=== PATIENT | female | born 1960 | race Caucasian/White ===

== ENCOUNTER → 2017-11-28 10:39 | Outpatient (CLI) | payer MEDICARE, OTHER, SELFPAY ==
[2017-11-28 14:30] LABS: Adenovirus F 40/41, stool Not Detected (NotDetected); Astrovirus Not Detected (NotDetected); Campylobacter Not Detected (NotDetected); Clostridium Difficile A/B, PCR Not Detected (NotDetected); Cryptosporidium Not Detected (NotDetected); Cyclospora Cayetanesis Not Detected (NotDetected); Entamoeba histolytica Not Detected (NotDetected); Enteroaggregative E coli Not Detected (NotDetected); Enteropathogenic E coli Not Detected (NotDetected); Enterotoxigenic E coli Not Detected (NotDetected); Giardia lamblia Not Detected (NotDetected); Norovirus Not Detected (NotDetected); Plesimonas Shigalloides, PCR Not Detected (NotDetected); Rotavirus A Not Detected (NotDetected); Salmonella, PCR Not Detected (NotDetected); Sapovirus Not Detected (NotDetected); Shiga-like toxin E coli Not Detected (NotDetected); Shigella Enterovasive E coli Not Detected (NotDetected); Vibrio Cholerae Not Detected (NotDetected); Vibrio, PCR Not Detected (NotDetected); Yersinia Entercolitica, PCR Not Detected (NotDetected)
== END ==
PROVIDERS: PCP Internal Medicine; Visit Provider Surgery
DX: R19.7 Diarrhea, unspecified (principal)
CPT/HCPCS: 87507

== ENCOUNTER → 2017-12-20 10:18 | Outpatient (CLI) | payer MEDICARE, OTHER, SELFPAY ==
--- NOTE | 2017-12-20 10:27 | CA_ITS ---
PROCEDURE: 2-D M-mode and color Doppler study INDICATIONS FOR THE TEST: Chest pain COPDX Heart Murmur Tobacco SmokingX Palpitations Fatigue Syncope Edema HypertensionXDiabetes Mellitus Rheumatic Fever SOB DOEXObesityXHyperlipidemia Family History HD Additional History ABN EKG TDS PLAX PSAX OBESITY PATIENT INFORMATION HEIGHT: 66 WEIGHT:276 GENDER: Female B/P:124/82 2-D/M-MODE INTERPRETATION: 2-D MEASUREMENTS OBSERVED VALUES IN CMS Right Ventricular Dimension (RVDd) 2.3 Interventricular Septum (Thickness)(IVsd) 1.4 Left Ventricular Internal Dimensions(LVIDd) 3.6 Left Ventricular Posterior Wall (Thickness)(LVPWd) 1.4 Aortic Root 3.5 Aortic Cusp Separation 1.9 Left Atrial Dimensions (LAD) 2.7 2D 1. Left atrium is mildly enlarged, left ventricle is normal size, there is mild concentric left ventricular hypertrophy, visually estimated ejection fraction 55% with no obvious regional wall motion abnormality. 2. The right atrium and right ventricle are normal size and contractility. 3. The aortic valve is minimally thickened and fibrosed. 4. The mitral and tricuspid valve leaflets are minimally thickened. 5. The pulmonic valve is poorly visualized. 6. No significant pericardial effusion noted. DOPPLER INTERROGATION: Doppler interrogation of the aortic, mitral and tricuspid valvular presence of mild aortic, mild mitral and tricuspid regurgitation, tricuspid regurgitant jet velocity is insufficient for calculation of the right ventricular systolic pressure, grade 1 diastolic dysfunction seen without tissue Doppler evidence of raised left atrial pressure. CONCLUSION: 1. Mildly enlarged left atrium, normal left ventricular size, mild concentric left ventricular hypertrophy, visually estimated ejection fraction of 55% with no obvious regional wall motion abnormality, grade 1 diastolic dysfunction seen without tissue Doppler evidence of raised left atrial pressure. 2. Mild aortic, mild mitral and tricuspid regurgitation. 3. No significant pericardial effusion noted.
== END ==
PROVIDERS: PCP Internal Medicine; Visit Provider Internal Medicine
DX: R94.31 Abnormal electrocardiogram [ECG] [EKG] (principal); J44.9 Chronic obstructive pulmonary disease, unspecified; I10 Essential (primary) hypertension
CPT/HCPCS: 93306

== ENCOUNTER → 2017-12-23 11:03 | Outpatient (CLI) | payer MEDICARE, OTHER, SELFPAY ==
--- NOTE | 2017-12-23 | FL_ITS ---
FL barium enema w air contrast CLINICAL INDICATION: Chronic diarrhea, ITS.REASON: ILEOCEAL VALVE LESIONS ORDERING PHYSICIAN: Cayden Causey MD PATIENT AGE: 57 years Fluoroscopy time: 3 minutes and 2 seconds COMPARISON: None FINDINGS: Benefits Counselor exam shows surgical clips in right upper quadrant. The colon is visualized from rectum to cecum. The terminal ileum was not demonstrated. There is only minimal amount reflux of contrast into the terminal ileum. Diverticulosis involves the descending and sigmoid colon. No annular constricting lesions are evident. No fixed polypoid filling defects are apparent. IMPRESSION: 1. Diverticulosis of the descending and sigmoid colon. 2. Otherwise negative air-contrast barium enema
== END ==
PROVIDERS: PCP Internal Medicine; Visit Provider Surgery
DX: D37.4 Neoplasm of uncertain behavior of colon (principal); D12.0 Benign neoplasm of cecum
CPT/HCPCS: 74280

== ENCOUNTER → 2017-12-31 09:53 | Outpatient (CLI) | payer MEDICARE, OTHER, SELFPAY ==
--- NOTE | 2017-12-31 10:14 | XR_ITS ---
XR KUB CLINICAL INDICATION: Abdominal pain ITS.REASON: RO RESIDUAL BARIUM FROM BARIUM ENEMA PRIOR TO CT AND SBFT ORDERING PHYSICIAN: Cayden Causey MD PATIENT AGE: 57 years COMPARISON: 12/23/2017 FINDINGS: There is a small amount residual contrast within a diverticulum in the left pelvic region. No other residual contrast present. Unremarkable bowel gas pattern. IMPRESSION: Small amount of residual barium within a diverticulum in the left lower quadrant
--- NOTE | 2017-12-31 10:42 | CT_ITS ---
CT abdomen pelvis w con CLINICAL INDICATION: Abdominal pain, ileocecal valve lesions, diarrhea ITS.REASON: abd pain ORDERING PHYSICIAN: Cayden Causey MD PATIENT AGE: 57 years COMPARISON: None TECHNIQUE: Axial images obtained with sagittal and coronal reformats. PROCEDURE: Oral Contrast: Gastroview IV Contrast: 75 mL's of Isovue-370. FINDINGS: Minimal atelectatic or fibrotic changes are present in the lung bases There is mild hepatomegaly with the liver measuring up to 28 cm in maximum transverse dimension. No focal liver lesion is evident. No intrahepatic ductal dilatation. There has been a prior cholecystectomy. The spleen, adrenal glands, and pancreas are unremarkable. There is a duodenal diverticulum projecting medially off of the descending portion of the duodenum. No renal mass or hydronephrosis. No obstructing ureteral calculus. No intestinal obstruction or free air. There has been a prior appendectomy. Multiple diverticula are present in the ascending and sigmoid colon. No evidence of diverticulitis. Artifact is present from barium within a diverticulum in the sigmoid colon. There is mild thickening of the terminal ileum with a fat halo sign of the terminal ileum with infiltration of the submucosal fat of the terminal ileum. This may be seen with inflammatory bowel disease. No abscess or bowel obstruction. There is lobular contour of the left side of the uterus possibly related to fibroid involvement. There are scattered small lymph nodes of the mesentery's nonspecific No acute bony anomalies. IMPRESSION: 1. Mild thickening of the terminal ileum with infiltration of the submucosal fat. This may be seen with inflammatory bowel disease/Crohn's disease. 2. Diverticulosis of the sigmoid colon. 3. Lobular contour of the fundus of the uterus projecting anteriorly and toward the left fibroid involvement 4. Mild hepatomegaly
--- NOTE | 2017-12-31 12:55 | HMH.ITSHM ---
LOSARTIN,LEVOTHYROXIN,SPIRIVA
== END ==
PROVIDERS: PCP Internal Medicine; Visit Provider Surgery
DX: D37.4 Neoplasm of uncertain behavior of colon (principal); D12.0 Benign neoplasm of cecum
CPT/HCPCS: 74018; 74177; Q9966

== ENCOUNTER → 2017-12-31 12:12 | Outpatient (CLI) | payer MEDICARE, OTHER, SELFPAY ==
[2017-12-31 12:33] LABS: Blood Urea Nitrogen 15 mg/dL (7-18); Creatinine,Serum 1.21 mg/dL (0.55-1.02); Estimated Glomerular Filt Rate 46 ml/min (>60); GFR (African American) 56 ML/MIN (>60)
== END ==
PROVIDERS: Visit Provider Surgery
DX: D37.4 Neoplasm of uncertain behavior of colon (principal); D12.0 Benign neoplasm of cecum
CPT/HCPCS: 36415; 74018; 74177; 82565; 84520; Q9966

== ENCOUNTER → 2018-01-02 08:20 | Outpatient (CLI) | payer MEDICARE, OTHER, SELFPAY ==
--- NOTE | 2018-01-02 08:22 | FL_ITS ---
FL small bowel follow through CLINICAL INDICATION: Abdominal pain, diarrhea, explosive diarrhea, ileocecal lesions ITS.REASON: abd pain ORDERING PHYSICIAN: Cayden Causey MD PATIENT AGE: 57 years COMPARISON: CT scan of 12/31/2017 Fluoroscopy time: 3 minutes and 31 seconds FINDINGS: Environmental Protection Inspector exam shows surgical clip in right upper quadrant. Contrast was followed throughout the small bowel with spot views and KUB. There is no evidence of small bowel obstruction. No masses are evident. There is mild narrowing of the terminal ileum with haziness of the mucosal outline similar to the abnormality noted on the CT scan consistent with inflammatory bowel disease. No fistulas are evident. IMPRESSION: Mild haziness of the lumen of the terminal ileum which may reflect findings of inflammatory bowel disease.
== END ==
PROVIDERS: PCP Internal Medicine; Visit Provider Surgery
DX: D37.4 Neoplasm of uncertain behavior of colon (principal); D12.0 Benign neoplasm of cecum
CPT/HCPCS: 74250

== ENCOUNTER → 2018-01-13 08:07 | Outpatient (POV) | payer MEDICARE, OTHER, SELFPAY | PROVIDERS: Visit Provider Nurse Practitioner Acute Care | DX: Z00.00 Encounter for general adult medical examination without abnormal findings (principal) ==

== ENCOUNTER → 2018-05-26 13:43 | Outpatient (POV) | payer MEDICARE, OTHER, SELFPAY ==
[2018-05-28 08:37] LABS: Iron 59 ug/dL (27-159); Iron Saturation 14 % (15-55); UIBC 369 ug/dL (131-425)
[2018-05-29 06:49] LABS: Vitamin B12 387 pg/mL (232-1245)
== END ==
PROVIDERS: Visit Provider Nurse Practitioner Acute Care
DX: D51.9 Vitamin B12 deficiency anemia, unspecified (principal)
CPT/HCPCS: 36415; 82607; 83540; 83550

== ENCOUNTER → 2019-08-17 11:35 | Outpatient (CLI) | payer MEDICARE, BC, SELFPAY ==
--- NOTE | 2019-08-17 11:45 | XR_ITS ---
PROCEDURE: XR SHOULDER RT MIN 2V CLINICAL INDICATION: RT SHOULDER PAIN COMPARISON: No exams were available for comparison FINDINGS: There are mild osteoarthritic changes of the acromioclavicular joint. No fracture or dislocation. Small subarticular cyst involves the base of the greater tuberosity of the humerus. No lytic or blastic change IMPRESSION: Mild degenerative changes otherwise negative Dictated by: Parvez Collins MD 08/17/2019 12:33 Electronically signed by Parvez Collins MD in [place] 08/17/2019 12:33
== END ==
PROVIDERS: PCP Internal Medicine; Visit Provider Internal Medicine
DX: M25.511 Pain in right shoulder (principal)
CPT/HCPCS: 73030

== ENCOUNTER → 2021-07-17 13:51 | Outpatient (CLI) | payer MEDICARE, BC, SELFPAY ==
[2021-07-17 15:07] LABS: Hemoglobin A1C 8.3 % (4.0-6.0)
[2021-07-17 16:09] LABS: Thyroid Stimulating Hormone 9.82 uIU/mL (0.465-4.68)
== END ==
PROVIDERS: Visit Provider Internal Medicine
DX: R73.9 Hyperglycemia, unspecified (principal); E05.90 Thyrotoxicosis, unspecified without thyrotoxic crisis or storm
CPT/HCPCS: 83036; 84443

== ENCOUNTER → 2021-10-10 14:31 | Outpatient (CLI) | payer MEDICARE, BC, SELFPAY ==
[2021-10-10 14:49] LABS: Basophils % 0.5 % (0.1-2.0); Eosinophils # 0.1 K/mm3 (0.0-0.4); Eosinophils % 1.1 % (0.1-12.0); Hematocrit 45.4 % (37.0-47.0); Hemoglobin 15.2 g/dL (12.2-16.2); Lymphocytes # 1.1 K/mm3 (0.7-4.5); Lymphocytes % 14.9 % (10-50); Mean Corpuscular HGB Conc 33.6 g/dL (31.8-35.4); Mean Corpuscular Hemoglobin 29.8 pg (27.0-31.2); Mean Corpuscular Volume 88.8 fl (81-99); Mean Platelet Volume 8.3 fl (7.4-10.4); Monocytes # 0.4 K/mm3 (0.1-1.0); Monocytes % 5.8 % (1.7-9.3); Neutrophils # 5.5 K/mm3 (1.8-7.8); Neutrophils % 77.6 % (37.0-80.0); Platelet Count 339 K/mm3 (142-424); Red Blood Count 5.11 M/mm3 (4.20-5.40); Red Cell Distribution Width 14.4 % (11.5-17.5); White Blood Count 7.1 K/mm3 (4.8-10.8)
[2021-10-10 15:32] LABS: Alanine Aminotransferase 53 U/L (12-78); Albumin Level 4.2 g/dl (3.5-5.0); Albumin/Globulin Ratio 1.4 (1.1-1.8); Alkaline Phosphatase 86 U/L (38-126); Anion Gap 13.1 mEq/L (5-15); Aspartate Amino Transferase 63 U/L (14-36); Bilirubin,Total 0.7 mg/dl (0.2-1.3); Blood Urea Nitrogen 14 mg/dl (7-17); Calcium 9.4 mg/dl (8.4-10.2); Carbon Dioxide 30 mmol/L (22.0-30.0); Chloride 91 mmol/L (98-107); Estimated Glomerular Filt Rate 57 ml/min (>60); GFR (African American) 68 ML/MIN (>60); Glucose 135 mg/dl (74-100); Potassium 4.1 mmoL/L (3.5-5.1); Sodium 130 mmol/L (136-145); Total Protein,Serum 7.2 g/dl (6.3-8.2)
[2021-10-10 21:40] LABS: Hemoglobin A1C 7.2 % (4.0-6.0)
[2021-10-11 00:09] LABS: Chol/HDL Ratio 9.6 (1-3.5); Cholesterol 269 mg/dl (140-200); HDL Cholesterol 28 mg/dl (40-60); Triglycerides 300 mg/dl (30-150); VLDL Cholesterol 60 mg/dL (0-40)
[2021-10-11 00:20] LABS: Direct LDL Cholesterol 166.81 mg/dL (100-129)
== END ==
PROVIDERS: Visit Provider Internal Medicine
DX: E11.9 Type 2 diabetes mellitus without complications (principal); E78.5 Hyperlipidemia, unspecified; J44.9 Chronic obstructive pulmonary disease, unspecified; J44.1 Chronic obstructive pulmonary disease with (acute) exacerbation
CPT/HCPCS: 80053; 80061; 82043; 83036; 85025

== ENCOUNTER → 2022-04-16 13:09 | Outpatient (CLI) | payer MEDICARE, BC, SELFPAY ==
[2022-04-16 14:59] LABS: Chloride 95 mmol/L (98-107)
[2022-04-16 15:00] LABS: Potassium 4.8 mmoL/L (3.5-5.1); Sodium 135 mmol/L (136-145)
[2022-04-16 15:02] LABS: Alanine Aminotransferase 20 U/L (12-78); Alkaline Phosphatase 85 U/L (38-126); Aspartate Amino Transferase 28 U/L (14-36); Bilirubin,Total 0.6 mg/dl (0.2-1.3); Blood Urea Nitrogen 18 mg/dl (7-17); Estimated Glomerular Filt Rate 57 ml/min (>60); GFR (African American) 68 ML/MIN (>60)
[2022-04-16 15:03] LABS: Albumin Level 4.1 g/dl (3.5-5.0); Albumin/Globulin Ratio 1.4 (1.1-1.8); Anion Gap 12.8 mEq/L (5-15); Calcium 10.2 mg/dl (8.4-10.2); Carbon Dioxide 32 mmol/L (22.0-30.0); Chol/HDL Ratio 9.6 (1-3.5); Cholesterol 297 mg/dl (140-200); Globulin 2.9 g/dL (1.3-3.2); Glucose 147 mg/dl (74-100); HDL Cholesterol 31 mg/dl (40-60)
[2022-04-16 15:14] LABS: Direct LDL Cholesterol 133.58 mg/dL (100-129)
[2022-04-16 15:17] LABS: Triglycerides 422 mg/dl (30-150)
[2022-04-16 15:34] LABS: Thyroid Stimulating Hormone 1.23 uIU/mL (0.465-4.68)
== END ==
PROVIDERS: PCP Internal Medicine; Visit Provider Internal Medicine
DX: E03.9 Hypothyroidism, unspecified (principal); I10 Essential (primary) hypertension; E11.9 Type 2 diabetes mellitus without complications; E78.5 Hyperlipidemia, unspecified; J44.9 Chronic obstructive pulmonary disease, unspecified
CPT/HCPCS: 80053; 80061; 83036; 84443

== ENCOUNTER → 2022-09-25 13:28 | Outpatient (CLI) | payer MEDICARE, BC, SELFPAY ==
[2022-09-25 14:29] LABS: Basophils # 0.1 K/mm3 (0-0.2); Basophils % 0.9 % (0.1-2.0); Eosinophils # 0.3 K/mm3 (0.0-0.4); Eosinophils % 3.1 % (0.1-12.0); Hematocrit 46.1 % (37.0-47.0); Hemoglobin 14.8 g/dL (12.2-16.2); Lymphocytes # 1.8 K/mm3 (0.7-4.5); Lymphocytes % 19.5 % (10-50); Mean Corpuscular Volume 90.5 fl (81-99); Mean Platelet Volume 9.2 fl (7.4-10.4); Monocytes # 0.4 K/mm3 (0.1-1.0); Neutrophils # 6.7 K/mm3 (1.8-7.8); Neutrophils % 72.5 % (37.0-80.0); Platelet Count 449 K/mm3 (142-424); Red Cell Distribution Width 15.8 % (11.5-17.5); White Blood Count 9.3 K/mm3 (4.8-10.8)
[2022-09-25 15:36] LABS: Alanine Aminotransferase 27 U/L (12-78); Albumin Level 4.4 g/dl (3.5-5.0); Albumin/Globulin Ratio 1.7 (1.1-1.8); Alkaline Phosphatase 77 U/L (38-126); Anion Gap 13.5 mEq/L (5-15); Aspartate Amino Transferase 36 U/L (14-36); Bilirubin,Total 0.5 mg/dl (0.2-1.3); Blood Urea Nitrogen 18 mg/dl (7-17); Calcium 10.4 mg/dl (8.4-10.2); Carbon Dioxide 32 mmol/L (22.0-30.0); Chloride 98 mmol/L (98-107); Chol/HDL Ratio 7.5 (1-3.5); Cholesterol 263 mg/dl (140-200); Estimated Glomerular Filt Rate 42 ml/min (>60); GFR (African American) 50 ML/MIN (>60); Globulin 2.6 g/dL (1.3-3.2); Glucose 132 mg/dl (74-100); HDL Cholesterol 35 mg/dl (40-60); Potassium 5.5 mmoL/L (3.5-5.1); Sodium 138 mmol/L (136-145); Triglycerides 240 mg/dl (30-150); VLDL Cholesterol 48 mg/dL (0-40)
[2022-09-25 15:55] LABS: Direct LDL Cholesterol 164.27 mg/dL (100-129)
[2022-09-25 16:14] LABS: Hemoglobin A1C 7.1 % (4.0-6.0)
== END ==
PROVIDERS: PCP Internal Medicine; Visit Provider Internal Medicine
DX: E11.9 Type 2 diabetes mellitus without complications (principal); I10 Essential (primary) hypertension; E78.5 Hyperlipidemia, unspecified; J44.9 Chronic obstructive pulmonary disease, unspecified
CPT/HCPCS: 80053; 80061; 83036; 85025

== ENCOUNTER → 2022-12-27 13:41 | Outpatient (CLI) | payer MEDICARE, BC, SELFPAY ==
[2022-12-27 14:26] LABS: Basophils # 0.1 K/mm3 (0-0.2); Basophils % 0.9 % (0.1-2.0); Eosinophils # 0.2 K/mm3 (0.0-0.4); Hematocrit 45.7 % (37.0-47.0); Hemoglobin 14.3 g/dL (12.2-16.2); Lymphocytes # 1.7 K/mm3 (0.7-4.5); Lymphocytes % 17.7 % (10-50); Mean Corpuscular HGB Conc 31.4 g/dL (31.8-35.4); Mean Corpuscular Hemoglobin 28.7 pg (27.0-31.2); Mean Corpuscular Volume 91.5 fl (81-99); Mean Platelet Volume 8.2 fl (7.4-10.4); Monocytes # 0.4 K/mm3 (0.1-1.0); Monocytes % 3.7 % (1.7-9.3); Neutrophils # 7.5 K/mm3 (1.8-7.8); Neutrophils % 75.8 % (37.0-80.0); Platelet Count 399 K/mm3 (142-424); Red Blood Count 4.99 M/mm3 (4.20-5.40); Red Cell Distribution Width 15.3 % (11.5-17.5); White Blood Count 9.8 K/mm3 (4.8-10.8)
== END ==
PROVIDERS: PCP Internal Medicine; Visit Provider Internal Medicine Pulmonary Disease
DX: J45.909 Unspecified asthma, uncomplicated (principal)
CPT/HCPCS: 36415; 82785; 85025; 86003

== ENCOUNTER → 2023-01-07 10:44 | Outpatient (CLI) | payer MEDICARE, BC, SELFPAY ==
[2023-01-10 17:51] LABS: D001-IgE D pteronyssinus 0.12 kU/L (Class 0/I); E001-IgE Cat Dander <0.10 kU/L (Class 0); E005-IgE Dog Dander <0.10 kU/L (Class 0); E072-IgE Mouse Urine <0.10 kU/L (Class 0); G002-IgE Bermuda Grass <0.10 kU/L (Class 0); G006-IgE Timothy Grass <0.10 kU/L (Class 0); Immunoglobulin E, Total 83 IU/mL (6-495); M001-IgE Penicillium chrysogen <0.10 kU/L (Class 0); M002-IgE Cladosporium herbarum <0.10 kU/L (Class 0); M003-IgE Aspergillus fumigatus <0.10 kU/L (Class 0); M006-IgE Alternaria alternata <0.10 kU/L (Class 0); T001-IgE Maple/Box Elder <0.10 kU/L (Class 0); T003-IgE Common Silver Birch <0.10 kU/L (Class 0); T006-IgE Cedar, Mountain <0.10 kU/L (Class 0); T007-IgE Oak, White <0.10 kU/L (Class 0); T008-IgE Elm, American <0.10 kU/L (Class 0); T010-IgE Walnut <0.10 kU/L (Class 0); T011-IgE Maple Leaf Sycamore <0.10 kU/L (Class 0); T014-IgE Cottonwood <0.10 kU/L (Class 0); T015-IgE Ash, White <0.10 kU/L (Class 0); T022-IgE Pecan, Hickory <0.10 kU/L (Class 0); T070-IgE White Mulberry <0.10 kU/L (Class 0); W001-IgE Ragweed, Short <0.10 kU/L (Class 0); W011-IgE Thistle, Russian <0.10 kU/L (Class 0); W014-IgE Pigweed, Common <0.10 kU/L (Class 0); W018-IgE Sheep Sorrel <0.10 kU/L (Class 0)
== END ==
PROVIDERS: PCP Internal Medicine; Visit Provider Internal Medicine Pulmonary Disease
DX: J30.9 Allergic rhinitis, unspecified (principal)
CPT/HCPCS: 82785; 86003

== ENCOUNTER → 2023-01-29 12:44 | Outpatient (CLI) | payer MEDICARE, BC, SELFPAY ==
--- NOTE | 2023-01-29 13:52 | CT_ITS ---
FINAL REPORT CLINICAL HISTORY: lung cancer screening, smokes 2 packs per day for 40 yrs, has COPD, father had lung cancer FINDINGS: Low-Dose Chest CT CTDI vol (mGy): 2.90 DLP (mGy-cm): 106.55 Axial images were obtained from the lung apex to the mid abdomen by computed tomography. Low-dose protocol was utilized. FINDINGS: CHEST: There is no axillary adenopathy. There is no hilar or mediastinal adenopathy. There is moderate coronary artery calcification. The heart is proper size. There is no pericardial or pleural effusion. Limited images of the upper abdomen are unremarkable. Lung window images demonstrate an 8 mm ground-glass nodule in the lateral left upper lobe. There are no other pulmonary masses or nodules. IMPRESSION: Lung RADS category 2. Recommend 12 month follow-up low-dose chest CT. Reviewed, Interpreted and Dictated by Jose Magaña III, MD Transcribed by Cole Jang Authenticated and [facility]
== END ==
PROVIDERS: PCP Internal Medicine; Visit Provider Internal Medicine Pulmonary Disease
DX: R06.09 Other forms of dyspnea (principal); Z87.891 Personal history of nicotine dependence; Z12.2 Encounter for screening for malignant neoplasm of respiratory organs
CPT/HCPCS: 71271; 94060; 94618; 94726; 94729

== ENCOUNTER → 2023-03-12 10:11 | Outpatient (CLI) | payer MEDICARE, BC, SELFPAY ==
--- NOTE | 2023-03-12 10:17 | XR_ITS ---
FINAL REPORT CLINICAL HISTORY: DJD WITH PAIN/STIFFNESS FINDINGS: Left knee Three views were obtained. There is no acute fracture or dislocation. There are mild degenerative changes, worst in the medial compartment. No joint effusion is identified. No soft tissue abnormality is identified. IMPRESSION: Degenerative changes as above. Reviewed, Interpreted and Dictated by Jose Magaña III, MD Transcribed by Tita Quach Authenticated and [facility]
--- NOTE | 2023-03-12 10:17 | XR_ITS ---
FINAL REPORT CLINICAL HISTORY: DJD WITH PAIN/STIFFNESS FINDINGS: Right knee Three views were obtained. There is no acute fracture or dislocation. There are mild degenerative changes, worst in the medial compartment. No joint effusion is identified. No soft tissue abnormality is identified. IMPRESSION: Degenerative changes as above. Reviewed, Interpreted and Dictated by Jose Magaña III, MD Transcribed by Tita Quach Authenticated and [facility]
[2023-03-12 12:53] LABS: Alanine Aminotransferase 16 U/L (12-78); Albumin Level 3.9 g/dl (3.5-5.0); Albumin/Globulin Ratio 1.3 (1.1-1.8); Alkaline Phosphatase 44 U/L (38-126); Anion Gap 19.6 mEq/L (5-15); Aspartate Amino Transferase 25 U/L (14-36); Bilirubin,Total 0.6 mg/dl (0.2-1.3); Blood Urea Nitrogen 33 mg/dl (7-17); Carbon Dioxide 31 mmol/L (22.0-30.0); Chloride 91 mmol/L (98-107); Chol/HDL Ratio 6.2 (1-3.5); Cholesterol 218 mg/dl (140-200); Estimated Glomerular Filt Rate 38 ml/min (>60); GFR (African American) 46 ML/MIN (>60); Glucose 127 mg/dl (74-100); HDL Cholesterol 35 mg/dl (40-60); Potassium 4.6 mmoL/L (3.5-5.1); Sodium 137 mmol/L (136-145); Total Protein,Serum 6.9 g/dl (6.3-8.2); Triglycerides 243 mg/dl (30-150); VLDL Cholesterol 49 mg/dL (0-40)
[2023-03-12 13:04] LABS: Direct LDL Cholesterol 122.76 mg/dL (100-129)
[2023-03-12 13:23] LABS: Thyroid Stimulating Hormone 2.84 uIU/mL (0.465-4.68)
[2023-03-12 13:37] LABS: Creatinine,Urine Random 137 mg/dL (Not Estab.)
[2023-03-12 13:45] LABS: Microalbumin < 6.000 mg/L (0-16.7)
[2023-03-13 18:26] LABS: Hemoglobin A1C 7.1 % (4.0-6.0)
== END ==
PROVIDERS: PCP Internal Medicine; Visit Provider Internal Medicine
DX: M17.11 Unilateral primary osteoarthritis, right knee (principal); M17.12 Unilateral primary osteoarthritis, left knee; M25.661 Stiffness of right knee, not elsewhere classified; M25.662 Stiffness of left knee, not elsewhere classified; E11.9 Type 2 diabetes mellitus without complications; E78.5 Hyperlipidemia, unspecified; R60.9 Edema, unspecified; I10 Essential (primary) hypertension; E03.9 Hypothyroidism, unspecified
CPT/HCPCS: 73562; 80053; 80061; 82043; 82570; 83036; 84443

== ENCOUNTER 2023-10-16 15:41 | Inpatient (IN) | payer MEDICARE, BC, SELFPAY ==
[2023-10-16] VITALS (9 sets, daily range): BP systolic 135–176; BP diastolic 71–84; PULSE 95–107; RESP 17–24; TEMP 36.6–36.7; O2SAT 82–98; BMI 51.6; BMI 50.1
--- NOTE | 2023-10-16 15:49 | ECG_ITS ---
APPROVED REPORT Exam: Resting ECG HR:96 bpm ECG Measurements Heart Rate 96 AXES AZ 193 P 66 QRSd 91 QRS 56 QT 323 T 63 QTc 377 Conclusion SINUS RHYTHM WITH OCCASIONAL VENTRICULAR PREMATURE COMPLEXES LOW QRS VOLTAGE IN PRECORDIAL LEADS [QRS DEFLECTION < 1.0 mV IN CHEST LEADS] BORDERLINE ECG UNCONFIRMED REPORT Electronically signed by : Jan Benitez MD 10/16/2023 23:01:13
--- NOTE | 2023-10-16 15:51 | PC.NURSE ---
called rad for breathing treatment
[2023-10-16] MEDS: IPRATROPIUM/ALBUTEROL 3 ML NEB IH (16:00)
--- NOTE | 2023-10-16 16:12 | PC.NURSE ---
Dr. Rosas at BS for pt eval
--- NOTE | 2023-10-16 16:13 | XR_ITS ---
PROCEDURE INFORMATION: Exam: XR Chest Exam date and time: 10/16/2023 4:29 PM Age: 63 years old Clinical indication: Dyspnea TECHNIQUE: Imaging protocol: Radiologic exam of the chest. Views: 1 view. COMPARISON: CT LUNG SCREENING 01/29/2023 1:55 PM FINDINGS: Lungs: No evidence of acute pulmonary disease or infiltrates; lung salazar appear clear. Pleural spaces: No large effusion or pneumothorax. Heart/Mediastinum: Stable cardiac and mediastinal contours. Vasculature: There are calcifications of the aortic arch. Bones/joints: No evidence of acute osseous abnormalities within the visualized portions of the thoracic spine and ribs. Osseous structures appear appropriate for patient age. IMPRESSION: No dense parenchymal consolidation, pleural effusion, or pneumothorax.
--- NOTE | 2023-10-16 16:16 | ED_ITS ---
Discharge Plan Disposition Patient Disposition: Admitted Prescriptions Prescriptions: No Action albuterol 90 mcg/actuation aerosol inhalation .prn fenofibrate 160 mg tablet 145 mg PO DAILY pioglitazone 45 mg tablet 45 mg PO DAILY ferrous sulfate [FeroSul] 325 mg (65 mg iron) tablet 65 mg PO DAILY cholecalciferol (vitamin D3) 125 mcg (5,000 unit) capsule 125 mcg PO DAILY icosapent ethyl [Vascepa] 1 gram capsule 2 g PO BID Ozempic 0.25 mg or 0.5 mg (2 mg/3 mL) pen injector 0.25 mg SQ WEEKLY Rx Instructions: for 4 weeks losartan-hydrochlorothiazide 100-25 mg tablet 1 tab PO ONCE levothyroxine 175 mcg tablet 175 mcg PO DAILY cyanocobalamin (vitamin B-12) 1,000 mcg/mL solution SUB-Q 28 Days Qty: 4 fluticasone propion-salmeterol [Wixela Inhub] 100-50 mcg/dose blister with device 1 inh inhalation BID 90 Days Qty: 180 3RF fluticasone propionate 50 mcg/actuation spray,suspension See Rx Instructions .ROUTE .COMPLEX Qty: 16 0RF Dose Instruction: PLACE 2 SPRAYS IN EACH NOSTRIL ONCE A DAY Rx Instructions: PLACE 2 SPRAYS IN EACH NOSTRIL ONCE A DAY Referrals Follow up/Referrals: Sánchez Sevilla MD [Primary Care Provider] - See instructions Clinical Impressions Clinical Impression: Acute exacerbation of chronic obstructive pulmonary disease, Acute hypoxic respiratory failure, Severe sepsis Discharge ED Provider: Tiffany Rosas General Adult HPI General Chief complaint: Shortness of Breath/Dyspnea Stated complaint: SOA, congestion Time Seen by Provider: 10/16/23 16:09 Mode of Arrival: Wheelchair Source of Information: Patient Limitations: No Limitations Description of Symptoms (Recalled from ER Triage Doc. by RN): Patient seen at PCP and sent to ER for shortness of breath and fever for 2 days. O2 sats on room air 82% and does not wear oxygen at baseline. Patient reports coughing and yellow sputum. History of Present Illness HPI narrative: Patient is a 63-year-old female with a known history of COPD who has had 2 days of cough shortness of breath fever went to Dr. Sevilla's office where her oxygen saturations on room air were 80% and she was noted to have a fever and she was sent to the emergency department. She denies any significant chest pain associated with this denies any nausea vomiting diarrhea or any other symptoms. Related Data Home Medications Medication Instructions Recorded Confirmed levothyroxine 175 mcg tablet 175 mcg PO DAILY HYPOTHYROID 11/27/17 05/07/23 losartan 100 1 tab PO ONCE BLOOD PRESSURE 11/27/17 05/07/23 mg-hydrochlorothiazide 25 mg tablet cyanocobalamin (vitamin B-12) SQ 28 days ##4 03/19/18 05/07/23 1,000 mcg/mL injection solution albuterol 90 mcg/actuation aerosol mcg inhalation .prn 12/27/22 05/07/23 inhaler cholecalciferol (vitamin D3) 125 125 mcg PO DAILY 12/27/22 05/07/23 mcg (5,000 unit) capsule fenofibrate 160 mg tablet 145 mg PO DAILY 12/27/22 05/07/23 ferrous sulfate 325 mg (65 mg 65 mg PO DAILY 12/27/22 05/07/23 iron) tablet (FeroSul) icosapent ethyl 1 gram capsule 2 g PO BID 12/27/22 05/07/23 (Vascepa) pioglitazone 45 mg tablet 45 mg PO DAILY 12/27/22 05/07/23 semaglutide 0.25 mg or 0.5 mg (2 0.25 mg SQ WEEKLY 05/07/23 05/07/23 mg/3 mL) subcutaneous pen injector (Ozempic) Previous Rx's Medication Instructions Recorded fluticasone 100 mcg-salmeterol 50 1 inh inhalation BID 90 days #180 09/02/23 mcg/dose blistr powdr for ea inhalation (Wixela Inhub) fluticasone propionate 50 See Rx Instructions .Route 09/16/23 mcg/actuation nasal .COMPLEX #16 grams spray,suspension Allergies Allergy/AdvReac Type Severity Reaction Status Date / Time Penicillins [PENICILLINS] Allergy Unknown I-HIVES Verified 05/07/23 10:35 [facility] Disclaimer: The information contained in this section may have been updated after the patient was seen, as this information can be updated by other users. Medical History Allergic rhinitis Asthma Chronic obstructive pulmonary disease Dyspnea on exertion Family history of asthma History of asthma Lung nodule Screening for lung cancer Smoking greater than 30 pack years Surgical History History of appendectomy History of cholecystectomy Family History Other COPD (chronic obstructive pulmonary disease) Diabetes Hypertension Social History Smoking Status: Current every day smoker tobacco type: cigarettes alcohol intake: never counseling provided: provider counseling substance use type: denies use current occupational status: disabled Travel in the last 8 weeks: None caffeine: No ROS Obtained: Yes All systems reviewed & no additional complaints except as documented Physical Exam General General appearance: alert Respiratory Respiratory exam: Present other (Send saturations 82% on room air patient is in mild respiratory distress breathing rapidly but speaking in full sentences she has diffuse expiratory wheezing no focal adventitious lung sounds no excess or muscle use slight prolonged expiratory phase) Cardiovascular Cardiovascular exam: Present tachycardia Neurological Exam Neurological exam: Present alert and oriented X3 Medical Decision Making Brendon Inquiry Pt receiving controlled substance: No Vital Signs: 10/16/23 15:43 10/16/23 16:01 10/16/23 16:00 Pulse Rate 95 H 95 H Pulse Rate [Right] 95 H Respiratory Rate 24 20 Blood Pressure 143/84 H Blood Pressure [Right Arm] 143/84 H Blood Pressure Mean 98 Blood Pressure Mean [Right Arm] 103 Blood Pressure Source [Right Arm] Automatic Cuff 02 Sat by Pulse Oximetry 82 L 98 Oxygen Delivery Method Room Air Oxygen Flow Rate (LPM) 10/16/23 16:00 10/16/23 17:00 10/16/23 17:30 Pulse Rate 95 H 107 H 99 H Pulse Rate [Right] Respiratory Rate 20 Blood Pressure 163/80 H 176/75 H Blood Pressure [Right Arm] Blood Pressure Mean 108 Blood Pressure Mean [Right Arm] Blood Pressure Source [Right Arm] 02 Sat by Pulse Oximetry 93 L 98 Oxygen Delivery Method Nasal Cannula Oxygen Flow Rate (LPM) 1 Lab Data Lab results reviewed: Yes I reviewed the patient's lab results. Lab Results 10/16/23 16:05: WBC 5.3, RBC 4.27, Hgb 12.6, Hct 38.0, MCV 89.1, MCH 29.6, MCHC 33.2, RDW 15.8, Plt Count 334, MPV 8.5, Neut % (Auto) 77.6, Lymph % (Auto) 11.0, Briscoe % (Auto) 10.6 H, Eos % (Auto) 0.2, Baso % (Auto) 0.6, Neut # (Auto) 4.1, Lymph # (Auto) 0.6 L, Briscoe # (Auto) 0.6, Eos # (Auto) 0.0, Baso # (Auto) 0.0, Sodium 130 L, Potassium 3.7, Chloride 95 L, Carbon Dioxide 29, Anion Gap 9.7, BUN 14, Creatinine 1.20 H, Estimated Creat Clear 46, Estimated GFR 46 L, Est GFR ( Amer) 55 L, Glucose 135 H, Lactate 1.0, Calcium 8.8, Total Bilirubin 0.6, AST 48 H, ALT 29, Alkaline Phosphatase 49, Troponin I < 0.01, NT-Pro-B Natriuret Pep 996 H, Total Protein 7.7, Albumin 4.2, Globulin 3.5 H, Albumin/Globulin Ratio 1.2 10/16/23 16:05 10/16/23 16:05 Orders (Tests/Meds): ED MEDICATIONS Discontinued Medications Generic Name Dose Route Start Last Admin Trade Name Freq PRN Reason Stop Dose Admin Albuterol/Ipratropium 3 ml 10/16/23 16:13 10/16/23 16:00 Ipratropium/Albuterol 3 Ml Neb IH 10/16/23 16:14 3 ml ONCE ONE Administration Lactated Ringer's 1,000 mls @ 999 mls/hr 10/16/23 16:15 10/16/23 16:31 Lactated Ringer's 1000 Ml Bag IV 10/16/23 17:15 999 mls/hr .Q1H1M SHALOM Administration Magnesium Sulfate 2 gm in 50 mls @ 50 mls/hr 10/16/23 16:13 10/16/23 16:31 Magnesium Sulfate 2gm/50ml Premix IV 10/16/23 17:12 50 mls/hr ONCE ONE Administration Ceftriaxone Sodium 1 gm/ 50 mls @ 100 mls/hr 10/16/23 16:13 Sodium Chloride IV 10/16/23 16:42 ONCE ONE Azithromycin 500 mg/ Sodium 250 mls @ 250 mls/hr 10/16/23 16:14 10/16/23 17:25 Chloride IV 10/16/23 16:15 250 mls/hr ONCE ONE Administration Methylprednisolone Sodium Succinate 125 mg 10/16/23 16:13 10/16/23 16:32 Methylprednisolone Sod Succ 125mg Vial IV 10/16/23 16:14 125 mg ONCE ONE Administration ORDERS Category Date Time Status CXR --portable [XR chest portable] Stat Exams 10/16/23 16:13 Completed BNP [Brain Natriuretic Peptide] Stat Lab 10/16/23 16:05 Completed CBC w/Auto Diff [Complete Blood Count Auto Diff] Stat Lab 10/16/23 16:05 Completed CMP [Comprehensive Metabolic Panel] Stat Lab 10/16/23 16:05 Completed Full Resp Panel w/COVID ([facility]) Routine Lab 10/16/23 16:05 Received Lactic Acid Stat Lab 10/16/23 16:05 Completed Trop I [Troponin I] Stat Lab 10/16/23 16:05 Completed Troponin I Q3H Lab 10/16/23 19:15 Ordered Troponin I Q3H Lab 10/16/23 22:15 Ordered Blood Culture Stat Micro 10/16/23 16:05 Received ECG initial Besson Routine Y 10/16/23 15:49 Completed Tissue Perfus/Sepsis Re-Eval Sepsis Re-Evaluation Performed: Yes Date Performed: 10/16/23 Time Performed: 17:52 Medical Decision Narrative: Is a 63-year-old female who is febrile tachycardic and tachypneic presenting today with other symptoms consistent with a COPD exacerbation. Will go ahead initiate respiratory antibiotics for community-acquired pneumonia standpoint in cluding Rocephin and azithromycin. She had a negative home COVID test but will get a comprehensive respiratory viral panel for her as well. Chest x-ray pending blood cultures have been sent patient is on 6 L with oxygen saturations that are normalized. She is getting nebs steroids antibiotics magnesium and given her supplemental oxygen needs she will need to be admitted for further evaluation and treatment Reassessment 5:51 PM patient feeling much better serial respiratory exams improved patient still requiring 4 L of nasal cannula to get sats above the 80s. This is a new oxygen requirement patient will be admitted for this purpose. She is also septic antibiotics were administered IV fluids assessed serial reassessments are improving. Given the fact the patient has hypoxic respiratory failure we will diagnose this with severe sepsis given the endorgan damage. No focal consolidation on my personal interpretation of chest x-ray and this is also consistent with radiology read Rocephin azithromycin were initiated in the ED. Critical Care Critical Care Time Critical Care Time: Yes Attestation: On 10/16/23, the high probability of a clinically significant, sudden or life threatening deterioration of the following system(s) required my full and direct attention, intervention and personal management. The time I documented below is in addition to time spent performing reported procedures but includes the following listed in this critical care notation. Total Time Total Critical Care Time: 35
[2023-10-16] MEDS: LACTATED RINGERS 1000ML 1,000 ML 999 ML IV (16:31)
[2023-10-16] MEDS: MAGNESIUM SULFATE IN WATER 2 GM/50 ML PIGGYBACK IV (16:31)
[2023-10-16] MEDS: METHYLPREDNISOLONE SOD SUCC 125MG VIAL 125 MG IV (16:32)
--- NOTE | 2023-10-16 16:33 | PC.NURSE ---
RAD at for CXR
--- NOTE | 2023-10-16 16:33 | PC.NURSE ---
rad at bedside
[2023-10-16 16:35] LABS: Adenovirus,PCR Not Detected (NotDetected); Coronavirus 19, PCR Not Detected (NotDetected); Coronavirus 229E Not Detected (NotDetected); Coronavirus NL63 Not Detected (NotDetected); Coronavirus OC43 Not Detected (NotDetected); Coronovirus HKU1,PCR Not Detected (NotDetected); Human Metapneumovirus Not Detected (NotDetected); Influenza A, PCR Not Detected (NotDetected); Influenza AH1, PCR Not Detected (NotDetected); Influenza AH3,PCR Not Detected (NotDetected); Influenza B, PCR Not Detected (NotDetected); Parainfluenza 1, PCR Not Detected (NotDetected); Parainfluenza 2, PCR Not Detected (NotDetected); Parainfluenza 3, PCR Not Detected (NotDetected); Parainfluenza 4, PCR Not Detected (NotDetected); Respiratory Syncytial Virus Not Detected (NotDetected); Rhinovirus/Enterovirus Not Detected (NotDetected)
[2023-10-16 16:48] LABS: Basophils % 0.6 % (0.1-2.0); Eosinophils % 0.2 % (0.1-12.0); Hemoglobin 12.6 g/dL (12.2-16.2); Lymphocytes # 0.6 K/mm3 (0.7-4.5); Mean Corpuscular HGB Conc 33.2 g/dL (31.8-35.4); Mean Corpuscular Hemoglobin 29.6 pg (27.0-31.2); Mean Corpuscular Volume 89.1 fl (81-99); Mean Platelet Volume 8.5 fl (7.4-10.4); Monocytes # 0.6 K/mm3 (0.1-1.0); Monocytes % 10.6 % (1.7-9.3); Neutrophils # 4.1 K/mm3 (1.8-7.8); Neutrophils % 77.6 % (37.0-80.0); Platelet Count 334 K/mm3 (142-424); Red Blood Count 4.27 M/mm3 (4.20-5.40); Red Cell Distribution Width 15.8 % (11.5-17.5); White Blood Count 5.3 K/mm3 (4.8-10.8)
[2023-10-16 16:53] LABS: Alanine Aminotransferase 29 U/L (12-78); Albumin Level 4.2 g/dl (3.5-5.0); Albumin/Globulin Ratio 1.2 (1.1-1.8); Alkaline Phosphatase 49 U/L (38-126); Anion Gap 9.7 mEq/L (5-15); Aspartate Amino Transferase 48 U/L (14-36); Bilirubin,Total 0.6 mg/dl (0.2-1.3); Blood Urea Nitrogen 14 mg/dl (7-17); Calcium 8.8 mg/dl (8.4-10.2); Carbon Dioxide 29 mmol/L (22.0-30.0); Chloride 95 mmol/L (98-107); Creatinine Clearance Estimated 46 mL/min (50-200); Estimated Glomerular Filt Rate 46 ml/min (>60); GFR (African American) 55 ML/MIN (>60); Globulin 3.5 g/dL (1.3-3.2); Glucose 135 mg/dl (74-100); Potassium 3.7 mmoL/L (3.5-5.1); Sodium 130 mmol/L (136-145); Total Protein,Serum 7.7 g/dl (6.3-8.2)
[2023-10-16 17:05] LABS: NT Pro Brain Natriuretic Pep. 996 pg/mL (0-125)
[2023-10-16 17:06] LABS: Troponin I < 0.01 ng/ml (0.00-0.034)
[2023-10-16] MEDS: AZITHROMYCIN 500 MG in 0.9 % SODIUM CHLORIDE 250 ML 250 MG IV (17:25)
--- NOTE | 2023-10-16 17:49 | PC.NURSE ---
Dr. Rosas at BS to update pt on POC
--- NOTE | 2023-10-16 18:28 | PC.NURSE ---
Report called to ANI Yanez
[2023-10-16] MEDS: CEFTRIAXONE SODIUM 1 GM in 0.9 % SODIUM CHLORIDE 50 ML IV (18:31)
[2023-10-16 18:33] LABS: Hemoglobin A1C 6.5 % (4.0-6.0)
[2023-10-16 18:37] LABS: Influenza AH1, 2009 Detected (NotDetected)
[2023-10-16 18:51] LABS: Thyroid Stimulating Hormone 1.18 uIU/mL (0.465-4.68)
--- NOTE | 2023-10-16 18:56 | PC.NURSE ---
arrived by w/c from ED
--- NOTE | 2023-10-16 19:45 | P.HP_ITS ---
History of Present Illness *Admission Date: 10/16/23 *Reason for visit:: SOB *History of present illness: This is a 63-year-old morbidly obese female with a known history of COPD, current heavy smoker, Diabetes with CKD, HTN, HLD, hypothyroidism who has had 2 days of cough shortness of breath fever went to Dr. Sevilla's office where her oxygen saturations on room air were 80% and she was noted to have a fever and she was sent to the emergency department. Patient stated been in contact with influenza A sick close family members. She denies any significant chest pain associated with this denies any nausea vomiting diarrhea or any other symptoms. Admitted for treatment and management. [facility] Disclaimer: The information contained in this section may have been updated after the p atsparkle was seen, as this information can be updated by other users. Medical History Allergic rhinitis Asthma Chronic obstructive pulmonary disease Diabetes mellitus, type 2 Dyspnea on exertion Family history of asthma History of asthma Hypertension Hypothyroid Lung nodule Osteoarthritis Screening for lung cancer Smoking greater than 30 pack years Surgical History History of appendectomy History of cholecystectomy Family History Other COPD (chronic obstructive pulmonary disease) Diabetes Hypertension Social History (Updated 10/16/23 @ 19:36 by Sania Colón RN) Smoking Status: Current every day smoker tobacco type: cigarettes alcohol intake: never counseling provided: provider counseling substance use type: denies use current occupational status: disabled Travel in the last 8 weeks: None caffeine: No Review of Systems Review of Systems Review of systems:: pertinent systems reviewed and negative unless documented below Meds Home Medications and Allergies Home Medications Medication Instructions Recorded Confirmed Type levothyroxine 175 mcg tablet 175 mcg PO DAILY HYPOTHYROID 11/27/17 10/16/23 History losartan 100 1 tab PO ONCE BLOOD PRESSURE 11/27/17 10/16/23 History mg-hydrochlorothiazide 25 mg tablet cyanocobalamin (vitamin B-12) 1,000 mcg SQ MONTHLY 28 days ##4 03/19/18 10/16/23 History 1,000 mcg/mL injection solution albuterol 90 mcg/actuation aerosol 90 mcg inhalation .prn 12/27/22 10/16/23 History inhaler cholecalciferol (vitamin D3) 125 125 mcg PO DAILY 12/27/22 10/16/23 History mcg (5,000 unit) capsule fenofibrate 160 mg tablet 145 mg PO DAILY 12/27/22 10/16/23 History ferrous sulfate 325 mg (65 mg 65 mg PO DAILY 12/27/22 10/16/23 History iron) tablet (FeroSul) icosapent ethyl 1 gram capsule 2 g PO BID 12/27/22 10/16/23 History (Vascepa) pioglitazone 45 mg tablet 45 mg PO DAILY 12/27/22 10/16/23 History fluticasone 100 mcg-salmeterol 50 1 inh inhalation BID 90 days #180 09/02/23 10/16/23 Rx mcg/dose blistr powdr for ea inhalation (Wixela Inhub) fluticasone propionate 50 See Rx Instructions .Route 09/16/23 10/16/23 Rx mcg/actuation nasal .COMPLEX #16 grams spray,suspension New Prescriptions to Start Prescriptions: Allergies Allergy/AdvReac Type Severity Reaction Status Date / Time Penicillins [PENICILLINS] Allergy Unknown I-HIVES Verified 05/07/23 10:35 Exam Data for Last 24 hours Vital signs and Labs for Last 24 Hours: Temp Pulse Resp BP Pulse Ox O2 Del Method O2 Flow Rate 98 F 98 H 17 135/74 94 L Nasal Cannula 2 10/16/23 19:03 10/16/23 19:03 10/16/23 19:03 10/16/23 19:03 10/16/23 19:03 10/16/23 19:03 10/16/23 19:03 Laboratory Results - last 24 hr 10/16/23 16:05: WBC 5.3, RBC 4.27, Hgb 12.6, Hct 38.0, MCV 89.1, MCH 29.6, MCHC 33.2, RDW 15.8, Plt Count 334, MPV 8.5, Neut % (Auto) 77.6, Lymph % (Auto) 11.0, [place] % (Auto) 10.6 H, Eos % (Auto) 0.2, Baso % (Auto) 0.6, Neut # (Auto) 4.1, Lymph # (Auto) 0.6 L, [place] # (Auto) 0.6, Eos # (Auto) 0.0, Baso # (Auto) 0.0, Sodium 130 L, Potassium 3.7, Chloride 95 L, Carbon Dioxide 29, Anion Gap 9.7, BUN 14, Creatinine 1.20 H, Estimated Creat Clear 46, Estimated GFR 46 L, Est GFR ( Amer) 55 L, Glucose 135 H, Hemoglobin A1c 6.5 H, Lactate 1.0, Calcium 8.8, Total Bilirubin 0.6, AST 48 H, ALT 29, Alkaline Phosphatase 49, Troponin I < 0.01 10/16/23 16:05: Troponin I Cancelled, NT-Pro-B Natriuret Pep 996 H, Total Pro tein 7.7, Albumin 4.2, Globulin 3.5 H, Albumin/Globulin Ratio 1.2, TSH 1.18, Chlamy pneumoniae PCR TNP, Adenovirus (PCR) Not detected, B. pertussis DNA (PCR) TNP, Coronavirus OC43 (PCR) Not detected, Coronavirus HKU1 (PCR) Not detected, Coronavirus 229E (PCR) Not detected, SARS-CoV-2 (PCR) Not detected, Coronavirus NL63 (PCR) Not detected, Human Metapneumovir PCR Not detected, Influenza A (H1) PCR Not detected, Influ A (H1N1/09) PCR Detected A, Influenza A (H3) PCR Not detected, Influenza Type A (PCR) Not detected, Influenza Type B (PCR) Not detect ed, M. pneumoniae (PCR) TNP, Parainfluenza 1 (PCR) Not detected, Parainfluenza 2 (PCR) Not detected, Parainfluenza 3 (PCR) Not detected, Parainfluenza 4 (PCR) Not detected, RSV (PCR) Not detected, Entero/Rhino (PCR) Not detected I & O for Last 24 hours: Intake & Output 10/13/23 10/14/23 10/15/23 10/16/23 23:59 23:59 23:59 23:59 Weight 140.755 kg Constitutional Constitutional: moderate distress, morbidly obese and cooperative *Routine HEENT Exam Head: Present normocephalic and atraumatic Eye: Present EOMI, PERRL and normal accommodation ENT: Present mucous membranes moist *Routine Neck Exam Neck: Present supple, full ROM and trachea midline *Routine Respiratory Exam Respiratory: Present prolonged expiratory phase, respiratory distress, wheezes, diminished air movement and symmetric chest movement *Routine Cardiovascular Exam Cardiovascular: Present RRR, Normal S1, Normal S2 and tachycardia *Routine Abdominal Exam Abdominal: Present soft, normoactive bowel sounds and obese; Absent organomegaly *Routine Rectal Exam Rectal:: deferred *Routine Genitalia Exam Genitalia:: deferred *Routine Extremities Exam Extremities: Present full ROM, pulses intact and normal capillary refill; Absent cyanosis, clubbing or edema *Routine Skin Exam Skin: Present intact, dry and warm *Routine Neurological Exam Neurological: Present alert, oriented X3, normal reflexes, moving all extremities and normal speech Routine Psychiatric Exam Psychiatric: Present normal thought process, cooperative, good judgment and anxious H&P: Result Imaging and Cardiology EKG: Status: image reviewed by me and Preliminary report Chest x-ray: Status: image reviewed by me, Preliminary report and final report Assessment and Plan *Assessment and plan (1) Acute hypoxic respiratory failure: Status: Acute Category: Medical Code(s): J96.01 - Acute respiratory failure with hypoxia (2) Acute exacerbation of chronic obstructive pulmonary disease: Status: Acute Category: Medical Code(s): J44.1 - Chronic obstructive pulmonary disease with (acute) exacerbation (3) H1N1 influenza: Status: Acute Category: Medical Code(s): J10.1 - Influenza due to other identified influenza virus with other respiratory manifestations (4) Smoking greater than 30 pack years: Status: Chronic Category: Social Hx Code(s): F17.210 - Nicotine dependence, cigarettes, uncomplicated (5) Hypothyroid: Status: Acute Qualifiers: Hypothyroidism type: unspecified Qualified Code(s): E03.9 - Hypothyroidism, unspecified Category: Medical Code(s): E03.9 - Hypothyroidism, unspecified (6) Hypertension: Status: Acute Qualifiers: Hypertension type: unspecified Qualified Code(s): I10 - Essential (primary) hypertension Category: Medical Code(s): I10 - Essential (primary) hypertension (7) Diabetes mellitus, type 2: Status: Acute Qualifiers: Chronic kidney disease stage: stage 3 (moderate) Chronic kidney disease stage 3 subtype: stage 3a (GFR 45-59) Diabetes mellitus complication detail: with chronic kidney disease Diabetes mellitus complication status: with kidney complications Diabetes mellitus middle or intermediate school principal insulin use: without middle or intermediate school principal use Qualified Code(s): E11.22 - Type 2 diabetes mellitus with diabetic chronic kidney disease; N18.31 - Chronic kidney disease, stage 3a Category: Medical Code(s): E11.9 - Type 2 diabetes mellitus without complications (8) Morbid obesity with BMI of 50.0-59.9, adult: Status: Acute Category: Medical Code(s): E66.01 - Morbid (severe) obesity due to excess calories; Z68.43 - Body mass index [BMI] 50.0-59.9, adult Plan 63-year-old morbidly obese female with a known history of COPD, current heavy smoker, Diabetes with CKD, HTN, HLD, hypothyroidism who has had 2 days of cough shortness of breath fever went to Dr. Sevilla's office where her oxygen saturations on room air were 80% and she was noted to have a fever and she was sent to the emergency department. On arrival, patient presented with low O2 sat and tachycardic. Had a CXR, that does not showed a focal consolidation. was tested positive for influenza A. Labs are posistive for mild hyponatremia, with slightly elevated creatinine. underwent for nebulizer and IV steroid. Discussed with ER. admitted. Plan as follow: - Acute hypoxemia secondary to acute exacerbation of COPD, likley to acute influenza: Admit patient for medical surgical service. Dispo MedSurg Monitor for O2 saturation. Currently 2 L by nasal cannula. DuoNeb every 6h . Resume advair IV Solu-Medrol 1 dose given at ER. Monitor for fever and sepsis. Started on Tamiflu p.o. Ceftriaxone 1 Gr Zithromax daily Droplet precaution -Current smoker: presented with level of anxiety versus hospital phobia One-time 0.5 clonazepam p.o. given nicotine patch. -Other chronic conditions: Hypertension, hypothyroidism, diabetes, HLD: Condition reviewed. Resume home meds Accu-Chek before meal. -Morbidly obese: Education provided on weight loss management. PCP to follow abnormal BMI Lovenox for DVT prophylaxis. On Protonix for GI bleed protection Full code Rounded on patient after nurse practitioner. Personally examined and interviewed patient. Agree with exam findings and care plan as documented. Pulmonology consult in the morning
[2023-10-16 20:12] LABS: POC Glucose,Bedside 209 (70-110)
[2023-10-16] MEDS: OSELTAMIVIR 75MG CAPSULE 75 MG PO (21:04)
[2023-10-16] MEDS: humaLOG 100 UNITS/ML 3ML VIAL (SSI) SQ (21:05)
[2023-10-16] MEDS: clonazePAM 0.5MG TABLET 0.5 MG PO (21:19)
[2023-10-16] MEDS: GUAIFENESIN/DEXTROMETHORPHAN 200MG/20MG 10ML UDC 10 ML PO (21:47)
[2023-10-17] VITALS (11 sets, daily range): BP systolic 121–147; BP diastolic 46–68; PULSE 78–105; RESP 18–20; TEMP 36.4–37; O2SAT 89–96; BMI 51.1
[2023-10-17] MEDS: IPRATROPIUM/ALBUTEROL 3 ML NEB IH ×5 (00:37→21:35)
[2023-10-17] MEDS: humaLOG 100 UNITS/ML 3ML VIAL (SSI) SQ ×2 (06:14→16:15)
[2023-10-17 06:17] LABS: POC Glucose,Bedside 167 (70-110)
[2023-10-17 07:18] LABS: Basophils % 0.2 % (0.1-2.0); Eosinophils % 0.1 % (0.1-12.0); Hematocrit 36.3 % (37.0-47.0); Hemoglobin 12.2 g/dL (12.2-16.2); Lymphocytes # 0.7 K/mm3 (0.7-4.5); Lymphocytes % 12.4 % (10-50); Mean Corpuscular HGB Conc 33.5 g/dL (31.8-35.4); Mean Corpuscular Volume 89.5 fl (81-99); Mean Platelet Volume 8.1 fl (7.4-10.4); Monocytes # 0.3 K/mm3 (0.1-1.0); Monocytes % 6.2 % (1.7-9.3); Neutrophils # 4.4 K/mm3 (1.8-7.8); Neutrophils % 81.2 % (37.0-80.0); Platelet Count 319 K/mm3 (142-424); Red Blood Count 4.06 M/mm3 (4.20-5.40); Red Cell Distribution Width 15.9 % (11.5-17.5); White Blood Count 5.5 K/mm3 (4.8-10.8)
[2023-10-17 07:24] LABS: Chloride 100 mmol/L (98-107); Sodium 136 mmol/L (136-145)
[2023-10-17 07:26] LABS: Blood Urea Nitrogen 14 mg/dl (7-17); Creatinine Clearance Estimated 50 mL/min (50-200); Estimated Glomerular Filt Rate 50 ml/min (>60); GFR (African American) 61 ML/MIN (>60)
[2023-10-17 07:27] LABS: Alanine Aminotransferase 29 U/L (12-78); Albumin/Globulin Ratio 1.3 (1.1-1.8); Alkaline Phosphatase 45 U/L (38-126); Aspartate Amino Transferase 45 U/L (14-36); Bilirubin,Total 0.4 mg/dl (0.2-1.3); Calcium 8.8 mg/dl (8.4-10.2); Carbon Dioxide 31 mmol/L (22.0-30.0); Glucose 158 mg/dl (74-100); Magnesium 2.3 mg/dl (1.6-2.3)
--- NOTE | 2023-10-17 07:31 | HMH.PHAINT1 ---
Pharmacy Intervention Comments: Home med list verified with patient at bedside and with external pharmacy list.
[2023-10-17] MEDS: IRBESARTAN 150MG TAB 150 MG PO (08:15)
[2023-10-17] MEDS: hydroCHLOROthiazide 25MG TABLET 25 MG PO (08:15)
[2023-10-17] MEDS: FENOFIBRATE 134MG CAPSULE 134 MG PO (08:15)
[2023-10-17] MEDS: FUROSEMIDE 40MG/4ML VIAL 40 MG IV (08:15)
[2023-10-17] MEDS: LEVOTHYROXINE 175MCG (0.175MG) TAB 175 MCG PO (08:15)
[2023-10-17] MEDS: OSELTAMIVIR PHOSPHATE 6MG/ML ORAL SUSP 60ML 30 MG PO ×2 (09:24→20:50)
--- NOTE | 2023-10-17 09:31 | EXP.PULM.CON ---
History of Present Illness History of present illness: Ms. Mary is a 63-year-old female with a asthma COPD overlap syndrome allergic rhinitis and pulmonary nodule presented to ER from PCP office as patient noted to have worsening oxygen requirements along with subjective fevers. Patient admits positive sick contact. Progressive worsening respiratory symptoms. [facility] Disclaimer: The information contained in this section may have been updated after the patient was seen, as this information can be updated by other users. Medical History Allergic rhinitis Asthma Chronic obstructive pulmonary disease Diabetes mellitus, type 2 Dyspnea on exertion Family history of asthma History of asthma Hypertension Hypothyroid Influenzal pneumonia Lung nodule Osteoarthritis Screening for lung cancer Smoking greater than 30 pack years Surgical History History of appendectomy History of cholecystectomy Family History Other COPD (chronic obstructive pulmonary disease) Diabetes Hypertension Social History (Updated 10/16/23 @ 19:36 by Sania Colón RN) Smoking Status: Current every day smoker tobacco type: cigarettes alcohol intake: never counseling provided: provider counseling substance use type: denies use current occupational status: disabled Travel in the last 8 weeks: None caffeine: No Review of Systems Constitutional Constitutional: Reports anorexia, Reports body ache(s) and Reports fatigue Eyes Eyes: Denies eye discharge, Denies dry eyes, Denies irritation and Denies itchy eyes ENT Ears, Nose, Mouth, and Throat: Denies epistaxis, Denies facial pain, Denies lip swelling and Denies throat swelling *Cardiovascular Cardiovascular: Reports dyspnea and Reports dyspnea on exertion *Respiratory Respiratory: Denies change in phlegm color, Reports chest congestion, Reports cough, Reports dyspnea, Reports dyspnea on exertion, Reports excessive phlegm production and Reports wheezing *Gastrointestinal Gastrointestinal: Denies abdominal pain, Denies belching and Denies cramping *Musculoskeletal Musculoskeletal: Reports back pain, Reports myalgias and Reports other (No small joint swelling or Pain) Psychiatric Psychiatric: Denies homicidal ideation and Denies suicidal ideation Endocrine Endocrine: Reports fatigue and Denies heat intolerance Hematologic/Lymphatic Hematologic/Lymphatic: Denies easy bleeding and Denies lymphadenopathy Allergic/Immunologic Allergic/Immunologic: Denies itchy eyes, Denies lip swelling, Denies throat swelling and Reports wheezing Pulmonology Exam Inpatient Vital signs and Labs for Last 24 Hours: Temp Pulse Resp BP Pulse Ox O2 Del Method O2 Flow Rate 98.6 F 92 H 20 147/68 H 89 L Nasal Cannula 2 10/17/23 08:00 10/17/23 08:00 10/17/23 08:00 10/17/23 08:00 10/17/23 08:00 10/17/23 08:00 10/17/23 07:00 Laboratory Results - last 24 hr 10/16/23 16:05: WBC 5.3, RBC 4.27, Hgb 12.6, Hct 38.0, MCV 89.1, MCH 29.6, MCHC 33.2, RDW 15.8, Plt Count 334, MPV 8.5, Neut % (Auto) 77.6, Lymph % (Auto) 11.0, [place] % (Auto) 10.6 H, Eos % (Auto) 0.2, Baso % (Auto) 0.6, Neut # (Auto) 4.1, Lymph # (Auto) 0.6 L, [place] # (Auto) 0.6, Eos # (Auto) 0.0, Baso # (Auto) 0.0, Sodium 130 L, Potassium 3.7, Chloride 95 L, Carbon Dioxide 29, Anion Gap 9.7, BUN 14, Creatinine 1.20 H, Estimated Creat Clear 46, Estimated GFR 46 L, Est GFR ( Amer) 55 L, Glucose 135 H, Hemoglobin A1c 6.5 H, Lactate 1.0, Calcium 8.8, Total Bilirubin 0.6, AST 48 H, ALT 29, Alkaline Phosphatase 49, Troponin I < 0.01 10/16/23 16:05: Troponin I Cancelled, NT-Pro-B Natriuret Pep 996 H, Total Protein 7.7, Albumin 4.2, Globulin 3.5 H, Albumin/Globulin Ratio 1.2, TSH 1.18, Chlamy pneumoniae PCR TNP, Adenovirus (PCR) Not detected, B. pertussis DNA (PCR) TNP, Coronavirus OC43 (PCR) Not detected, Coronavirus HKU1 (PCR) Not detected, Coronavirus 229E (PCR) Not detected, SARS-CoV-2 (PCR) Not detected, Coronavirus NL63 (PCR) Not detected, Human Metapneumovir PCR Not detected, Influenza A (H1) PCR Not detected, Influ A (H1N1/09) PCR Detected A, Influenza A (H3) PCR Not detected, Influenza Type A (PCR) Not detected, Influenza Type B (PCR) Not detected, M. pneumoniae (PCR) TNP, Parainfluenza 1 (PCR) Not detected, Parainfluenza 2 (PCR) Not detected, Parainfluenza 3 (PCR) Not detected, Parainfluenza 4 (PCR) Not detected, RSV (PCR) Not detected, Entero/Rhino (PCR) Not detected 10/16/23 20:04: POC Glucose 209 H 10/17/23 06:00: POC Glucose 167 H 10/17/23 06:56: WBC 5.5, RBC 4.06 L, Hgb 12.2, Hct 36.3 L, MCV 89.5, MCH 30.0, MCHC 33.5, RDW 15.9, Plt Count 319, MPV 8.1, Neut % (Auto) 81.2 H, Lymph % (Auto) 12.4, [place] % (Auto) 6.2, Eos % (Auto) 0.1, Baso % (Auto) 0.2, Neut # (Auto) 4.4, Lymph # (Auto) 0.7, [place] # (Auto) 0.3, Eos # (Auto) 0.0, Baso # (Auto) 0.0, Sodium 136, Potassium 4.0, Chloride 100, Carbon Dioxide 31 H, Anion Gap 9.0, BUN 14, Creatinine 1.10 H, Estimated Creat Clear 50, Estimated GFR 50 L, Est GFR ( Amer) 61, Glucose 158 H, Calcium 8.8, Magnesium 2.3, Total Bilirubin 0.4, AST 45 H, ALT 29, Alkaline Phosphatase 45, Total Protein 7.0, Albumin 4.0, Globulin 3.0, Albumin/Globulin Ratio 1.3 I & O for Labs for Last 24 Hours: Intake & Output 10/14/23 10/15/23 10/16/23 10/17/23 23:59 23:59 23:59 23:59 Intake Total 210 / 210 Output Total 0 / 0 0 / 0 Balance 0 / 0 210 / 210 Weight 310 lb 5 oz 318 lb 4.8 oz Constitutional: Present moderate distress Head: Present normocephalic and atraumatic ENT: Present normal exam, normal oropharynx and mucous membranes moist Neck: Present normal inspection and full ROM Respiratory: Present respiratory distress and wheezes; Absent able to speak in complete sentences Cardiac: Present S1/S2, Tachycardia and radial pulses present GI: Present soft and distention; Absent tenderness or guarding Rectal (female): Present deferred (female): Present deferred Skin: Present intact; Absent cyanosis or jaundice Neuro: Present alert, awake and oriented x 3 Extremities: Present normal inspection; Absent clubbing or cyanosis Psychiatric: Present normal affect and cooperative Meds Home Medications and Allergies Home Medications Medication Instructions Recorded Confirmed Type levothyroxine 175 mcg tablet 175 mcg PO DAILY Thyroid 11/27/17 10/16/23 History losartan 100 1 tab PO DAILY High Blood Pressure 11/27/17 10/17/23 History mg-hydrochlorothiazide 25 mg tablet cyanocobalamin (vitamin B-12) 1,000 mcg SQ MONTHLY Supplement 03/19/18 10/17/23 History 1,000 mcg/mL injection solution days ##4 albuterol 90 mcg/actuation aerosol 90 mcg inhalation Q4HP PRN 12/27/22 10/17/23 History inhaler Shortness Of Breath Or Wheezing cholecalciferol (vitamin D3) 125 125 mcg PO DAILY 12/27/22 10/16/23 History mcg (5,000 unit) capsule fenofibrate 160 mg tablet 145 mg PO DAILY 12/27/22 10/16/23 History ferrous sulfate 325 mg (65 mg 325 mg PO DAILY 12/27/22 10/17/23 History iron) tablet (FeroSul) icosapent ethyl 1 gram capsule 2 g PO BID 12/27/22 10/17/23 History (Vascepa) pioglitazone 45 mg tablet 45 mg PO DAILY 12/27/22 10/16/23 History fluticasone 100 mcg-salmeterol 50 1 inh inhalation BID 90 days #180 09/02/23 10/16/23 Rx mcg/dose blistr powdr for ea inhalation (Wixela Inhub) fluticasone propionate 50 2 spray intranasal DAILY 10/17/23 10/17/23 History mcg/actuation nasal spray,suspension sitagliptin phosphate 100 mg 100 mg PO DAILY 10/17/23 10/17/23 History tablet (Januvia) New Prescriptions to Start Prescriptions: Allergies Allergy/AdvReac Type Severity Reaction Status Date / Time Penicillins [PENICILLINS] Allergy Unknown I-HIVES Verified 05/07/23 10:35 Results Laboratory Findings 10/17/23 06:56 10/17/23 06:56 Abnormal lab findings: Abnormal Labs 10/16/23 10/16/23 10/17/23 16:05 20:04 06:00 RBC Hct Neut % (Auto) [place] % (Auto) 10.6 H Lymph # (Auto) 0.6 L Sodium 130 L Chloride 95 L Carbon Dioxide Creatinine 1.20 H Estimated GFR 46 L Est GFR ( Amer) 55 L Glucose 135 H POC Glucose 209 H 167 H Hemoglobin A1c 6.5 H AST 48 H NT-Pro-B Natriuret Pep 996 H Globulin 3.5 H Influ A (H1N1/09) PCR Detected A 10/17/23 06:56 RBC 4.06 L Hct 36.3 L Neut % (Auto) 81.2 H [place] % (Auto) Lymph # (Auto) Sodium Chloride Carbon Dioxide 31 H Creatinine 1.10 H Estimated GFR 50 L Est GFR ( Amer) Glucose 158 H POC Glucose Hemoglobin A1c AST 45 H NT-Pro-B Natriuret Pep Globulin Influ A (H1N1/09) PCR Assessment and Plan *Assessment and plan (1) Influenzal pneumonia: Status: Acute Category: Medical Code(s): J11.00 - Influenza due to unidentified influenza virus with unspecified type of pneumonia (2) Acute exacerbation of chronic obstructive pulmonary disease: Status: Acute Category: Medical Code(s): J44.1 - Chronic obstructive pulmonary disease with (acute) exacerbation (3) Acute hypoxic respiratory failure: Status: Acute Category: Medical Code(s): J96.01 - Acute respiratory failure with hypoxia Plan Ms. Mary is a 63-year-old female with a asthma COPD overlap syndrome allergic rhinitis and pulmonary nodule presented to ER from PCP office as patient noted to have worsening oxygen requirements along with subjective fevers. Afebrile on admission. No evidence of leukocytosis. Flu a negative on admission. COVID-19 negative. Increasing ox requirements, currently on 2 L nasal cannula oxygen supplementation. Chest x-ray upon admission no dense consolidation/airspace disease. Patient was initiated on Tamiflu along with ceftriaxone azithromycin and DuoNebs. She is also receiving diuretics. On examination significant wheezing on auscultation. Respiratory distress. Patient admits only minimal improvement since admission. Plan: Continue oxygen supplementation to maintain O2 saturation below 90% able, patient current on 2 L nasal cannula. Continue oseltamivir for influenza pneumonia Continue ceftriaxone and azithromycin pending cultures DuoNebs every 4 hours and budesonide Q12 scheduled # Thank you for involving pulmonary in this patient care. Will continue to follow.
--- NOTE | 2023-10-17 10:19 | PC.NURSE ---
Patient oxygen saturation 79% on room air at rest
[2023-10-17 11:40] LABS: POC Glucose,Bedside 140 (70-110)
[2023-10-17] MEDS: clonazePAM 0.5MG TABLET 0.5 MG PO (13:01)
[2023-10-17] MEDS: PARoxetine 10MG TABLET 10 MG PO (13:31)
[2023-10-17] MEDS: CEFTRIAXONE SODIUM 1 GM in 0.9 % SODIUM CHLORIDE 50 ML IV (13:31)
[2023-10-17] MEDS: AZITHROMYCIN 500 MG in 0.9 % SODIUM CHLORIDE 250 ML 250 MG IV (14:41)
--- NOTE | 2023-10-17 16:01 | PC.NURSE ---
Patient weaned to 1LNC. VS stable. Lung sounds diminished. No other changes noted.
[2023-10-17 16:17] LABS: POC Glucose,Bedside 153 (70-110)
--- NOTE | 2023-10-17 17:13 | EXP.ACUTE.PN ---
Subjective *Date: 10/17/23 *Time: 17:13 Interval history: Patient states she feels little better this morning but still requiring 2 L nasal cannula oxygen. Room air saturation dropped to 82%. No nausea or vomiting. Tolerating p.o. intake. Afebrile this morning. Having significant anxiety overnight. Responded well to Klonopin overnight. Medical Exam Vital signs and Labs for Last 24 Hours: Vital Signs Temp Pulse Pulse Resp BP BP Pulse Ox 10/17/23 16:00 98.4 F 94 H 20 132/62 96 10/17/23 15:05 10/17/23 12:58 10/17/23 11:15 87 10/17/23 11:15 87 10/17/23 11:15 90 L 10/17/23 11:15 10/17/23 09:20 10/17/23 08:15 10/17/23 08:00 98.6 F 92 H 20 147/68 H 89 L 10/17/23 06:30 85 10/17/23 06:30 81 10/17/23 06:30 93 L 10/17/23 07:00 10/17/23 06:39 97.9 F 78 20 121/53 L 92 L 10/17/23 05:00 10/17/23 04:00 97.6 F 87 20 131/46 L 90 L 10/17/23 03:00 10/17/23 01:00 10/16/23 23:55 93 L 10/17/23 00:37 99 H 10/17/23 00:37 105 H 10/17/23 00:37 92 L 10/16/23 23:00 10/16/23 19:00 10/16/23 21:00 10/16/23 21:11 10/16/23 20:00 97.8 F 100 H 20 150/71 H 92 L 10/16/23 19:03 98 F 98 H 17 135/74 94 L 10/16/23 18:52 98.0 F 95 H 20 176/75 H 10/16/23 17:30 99 H 20 176/75 H 98 O2 Del Method O2 Flow Rate 10/17/23 16:00 Room Air 10/17/23 15:05 Room Air 10/17/23 12:58 Nasal Cannula 1.5 10/17/23 11:15 10/17/23 11:15 10/17/23 11:15 Nasal Cannula 1.5 10/17/23 11:15 Room Air 10/17/23 09:20 Room Air 10/17/23 08:15 Nasal Cannula 1 10/17/23 08:00 Nasal Cannula 10/17/23 06:30 10/17/23 06:30 10/17/23 06:30 Nasal Cannula 2 10/17/23 07:00 Nasal Cannula 2 10/17/23 06:39 Nasal Cannula 10/17/23 05:00 Nasal Cannula 2 10/17/23 04:00 Nasal Cannula 2 10/17/23 03:00 Nasal Cannula 2 10/17/23 01:00 Nasal Cannula 2 10/16/23 23:55 Nasal Cannula 2 10/17/23 00:37 10/17/23 00:37 10/17/23 00:37 Nasal Cannula 2 10/16/23 23:00 Nasal Cannula 2 10/16/23 19:00 Nasal Cannula 2 10/16/23 21:00 Nasal Cannula 2 10/16/23 21:11 Nasal Cannula 2 10/16/23 20:00 Nasal Cannula 2 10/16/23 19:03 Nasal Cannula 2 10/16/23 18:52 Room Air 10/16/23 17:30 Intake and Output 10/17/23 10/17/23 10/17/23 07:59 15:59 23:59 Intake Total 210 / 860 350 / 860 300 / 860 Output Total 0 / 0 Balance 210 / 860 350 / 860 300 / 860 Intake: Intake, Oral Amount 210 / 560 350 / 560 Intake, Total IV Amount 300 / 300 Azithromycin 500 mg In 0.9 % 250 / 250 Sodium Chloride 250 ml @ 250 mls/hr IV Q24H [facility] [place] Rx#:[id number] Ceftriaxone Sodium 1 gm In 0.9 50 / 50 % Sodium Chloride 50 ml @ 100 mls/hr IV Q24H [facility] [place] Rx#:[id number] Output: Output, Urine Amount 0 / 0 Other: Number of Unmeasured Voids 1 Weight 144.378 kg Patient Weight 10/17/23 23:59 Weight 144.378 kg Laboratory Results - last 24 hr 10/16/23 16:05: Hemoglobin A1c 6.5 H, Troponin I Cancelled, TSH 1.18, Chlamy pneumoniae PCR TNP, Adenovirus (PCR) Not detected, B. pertussis DNA (PCR) TNP, Coronavirus OC43 (PCR) Not detected, Coronavirus HKU1 (PCR) Not detected, Coronavirus 229E (PCR) Not detected, SARS-CoV-2 (PCR) Not detected, Coronavirus NL63 (PCR) Not detected, Human Metapneumovir PCR Not detected, Influenza A (H1) PCR Not detected, Influ A (H1N1/) PCR Detected A, Influenza A (H3) PCR Not detected, Influenza Type A (PCR) Not detected, Influenza Type B (PCR) Not detected, M. pneumoniae (PCR) TNP, Parainfluenza 1 (PCR) Not detected, Parainfluenza 2 (PCR) Not detected, Parainfluenza 3 (PCR) Not detected, Parainfluenza 4 (PCR) Not detected, RSV (PCR) Not detected, Entero/Rhino (PCR) Not detected 10/16/23 20:04: POC Glucose 209 H 10/17/23 06:00: POC Glucose 167 H 10/17/23 06:56: WBC 5.5, RBC 4.06 L, Hgb 12.2, Hct 36.3 L, MCV 89.5, MCH 30.0, MCHC 33.5, RDW 15.9, Plt Count 319, MPV 8.1, Neut % (Auto) 81.2 H, Lymph % (Auto) 12.4, [place] % (Auto) 6.2, Eos % (Auto) 0.1, Baso % (Auto) 0.2, Neut # (Auto) 4.4, Lymph # (Auto) 0.7, [place] # (Auto) 0.3, Eos # (Auto) 0.0, Baso # (Auto) 0.0, Sodium 136, Potassium 4.0, Chloride 100, Carbon Dioxide 31 H, Anion Gap 9.0, BUN 14, Creatinine 1.10 H, Estimated Creat Clear 50, Estimated GFR 50 L, Est GFR ( Amer) 61, Glucose 158 H, Calcium 8.8, Magnesium 2.3, Total Bilirubin 0.4, AST 45 H, ALT 29, Alkaline Phosphatase 45, Total Protein 7.0, Albumin 4.0, Globulin 3.0, Albumin/Globulin Ratio 1.3 10/17/23 11:28: POC Glucose 140 H 10/17/23 16:09: POC Glucose 153 H I & O for Labs for Last 24 Hours: Intake & Output 10/14/23 10/15/23 10/16/23 10/17/23 23:59 23:59 23:59 23:59 Intake Total 860 / 860 Output Total 0 / 0 0 / 0 Balance 0 / 0 860 / 860 Weight 140.755 kg 144.378 kg Constitutional: Present no acute distress, morbidly obese and chronically ill appearing Head: Present atraumatic ENT: Present normal exam Respiratory: Present rhonchi, wheezes and normal respiratory effort; Absent crackles Cardiac: Present Reg Rate and Rhythm GI: Present soft and normal bowel sounds; Absent distention or tenderness Extremities: Present normal inspection and full ROM Skin: Present intact; Absent erythema Neuro: Present Grossly Intact, alert, awake, oriented x 3 and moves all extremities Assessment and Plan *Assessment and plan (1) Acute hypoxic respiratory failure: Status: Acute Category: Medical Code(s): J96.01 - Acute respiratory failure with hypoxia (2) Acute exacerbation of chronic obstructive pulmonary disease: Status: Acute Category: Medical Code(s): J44.1 - Chronic obstructive pulmonary disease with (acute) exacerbation (3) H1N1 influenza: Status: Acute Category: Medical Code(s): J10.1 - Influenza due to other identified influenza virus with other respiratory manifestations (4) Smoking greater than 30 pack years: Status: Chronic Category: Social Hx Code(s): F17.210 - Nicotine dependence, cigarettes, uncomplicated (5) Hypothyroid: Status: Acute Qualifiers: Hypothyroidism type: unspecified Qualified Code(s): E03.9 - Hypothyroidism, unspecified Category: Medical Code(s): E03.9 - Hypothyroidism, unspecified (6) Hypertension: Status: Acute Qualifiers: Hypertension type: unspecified Qualified Code(s): I10 - Essential (primary) hypertension Category: Medical Code(s): I10 - Essential (primary) hypertension (7) Diabetes mellitus, type 2: Status: Acute Qualifiers: Diabetes mellitus nursing home insulin use: without terminal make up operator use Diabetes mellitus complication status: with kidney complications Diabetes mellitus complication detail: with chronic kidney disease Chronic kidney disease stage: stage 3 (moderate) Chronic kidney disease stage 3 subtype: stage 3a (GFR 45-59) Qualified Code(s): E11.22 - Type 2 diabetes mellitus with diabetic chronic kidney disease; N18.31 - Chronic kidney disease, stage 3a Category: Medical Code(s): E11.9 - Type 2 diabetes mellitus without complications (8) Morbid obesity with BMI of 50.0-59.9, adult: Status: Acute Category: Medical Code(s): E66.01 - Morbid (severe) obesity due to excess calories; Z68.43 - Body mass index [BMI] 50.0-59.9, adult Plan 63-year-old morbidly obese female with a known history of COPD, current heavy smoker, Diabetes with CKD, HTN, HLD, hypothyroidism who has had 2 days of cough shortness of breath fever went to Dr. Sevilla's office where her oxygen saturations on room air were 80% and she was noted to have a fever and she was sent to the emergency department. On arrival, patient presented with low O2 sat and tachycardic. Had a CXR, that does not showed a focal consolidation. was tested positive for influenza A. Still requiring supplemental oxygen today. Not well enough to go home. Continues to require inpatient management. Problems addressed as follows: - Acute hypoxemia secondary to acute exacerbation of COPD, likley to acute influenza: Continue supplemental oxygen with goal saturation greater 90%. Currently on 2 L. Room air saturation of 82%, will discharge home on oxygen Continue DuoNebs every 4 hours scheduled Discussed case with pulmonology, appreciate their assistance. Recommend continuing Tamiflu and antibiotics. Continue Tamiflu 75 mg p.o. twice daily Continue ceftriaxone 1 g daily and azithromycin 500 mg daily Droplet precaution -Current smoker: Nicotine patch provided, patient has declined at this time. Anxiety: Klonopin 0.5 mg p.o. twice daily as needed for anxiety; initiate Paxil 10 mg daily. -Other chronic conditions: Continue levothyroxine 175 mcg daily for hypothyroid Continue losartan and HCTZ for hypertension Sliding scale insulin with fingersticks ACHS for diabetes Morbid obesity complicates all aspects of her care Lovenox for DVT prophylaxis Diabetic diet Protonix Full code
[2023-10-17] MEDS: BUDESONIDE 0.5MG/2ML NEB 0.5 MG IH (18:10)
[2023-10-17] MEDS: GUAIFENESIN/DEXTROMETHORPHAN 200MG/20MG 10ML UDC 10 ML PO (19:04)
[2023-10-17 20:43] LABS: POC Glucose,Bedside 135 (70-110)
[2023-10-18] MEDS: IPRATROPIUM/ALBUTEROL 3 ML NEB IH ×3 (01:39→09:44)
[2023-10-18 01:40] VITALS: PULSE 83
[2023-10-18] MEDS: GUAIFENESIN/DEXTROMETHORPHAN 200MG/20MG 10ML UDC 10 ML PO (03:51)
[2023-10-18 04:00] VITALS: BP 113/50; PULSE 87; RESP 18; TEMP 36.6; O2SAT 92; BMI 49.9
[2023-10-18] MEDS: LEVOTHYROXINE 175MCG (0.175MG) TAB 175 MCG PO (06:22)
[2023-10-18 06:31] LABS: POC Glucose,Bedside 119 (70-110)
[2023-10-18 06:34] VITALS: PULSE 75; PULSE 79; O2SAT 91
[2023-10-18] MEDS: BUDESONIDE 0.5MG/2ML NEB 0.5 MG IH (06:34)
[2023-10-18 07:17] LABS: Basophils % 0.6 % (0.1-2.0); Eosinophils % 0.5 % (0.1-12.0); Hematocrit 40.2 % (37.0-47.0); Hemoglobin 13.1 g/dL (12.2-16.2); Lymphocytes # 1.1 K/mm3 (0.7-4.5); Lymphocytes % 20.8 % (10-50); Mean Corpuscular HGB Conc 32.5 g/dL (31.8-35.4); Mean Corpuscular Hemoglobin 29.7 pg (27.0-31.2); Mean Corpuscular Volume 91.3 fl (81-99); Monocytes # 0.4 K/mm3 (0.1-1.0); Monocytes % 7.5 % (1.7-9.3); Neutrophils # 3.9 K/mm3 (1.8-7.8); Neutrophils % 70.6 % (37.0-80.0); Platelet Count 355 K/mm3 (142-424); Red Cell Distribution Width 15.7 % (11.5-17.5); White Blood Count 5.5 K/mm3 (4.8-10.8)
[2023-10-18 07:28] LABS: Chloride 95 mmol/L (98-107); Sodium 139 mmol/L (136-145)
[2023-10-18 07:29] LABS: Potassium 3.6 mmoL/L (3.5-5.1)
--- NOTE | 2023-10-18 07:29 | P.PN_ITS ---
Subjective *Date: 10/18/23 *Time: 08:04 Interval history: No acute respiratory vents overnight. Patient admits continued improvement in her respiratory symptoms. Pulmonology Exam Inpatient Vital signs and Labs for Last 24 Hours: Temp Pulse Resp BP Pulse Ox O2 Del Method O2 Flow Rate 98 F 75 18 113/50 L 91 L Nasal Cannula 1.5 10/18/23 04:00 10/18/23 06:34 10/18/23 04:00 10/18/23 04:00 10/18/23 06:34 10/18/23 07:00 10/18/23 07:00 Laboratory Results - last 24 hr 10/17/23 06:56: WBC 5.5, RBC 4.06 L, Hgb 12.2, Hct 36.3 L, MCV 89.5, MCH 30.0, MCHC 33.5, RDW 15.9, Plt Count 319, MPV 8.1, Neut % (Auto) 81.2 H, Lymph % (Auto) 12.4, [place] % (Auto) 6.2, Eos % (Auto) 0.1, Baso % (Auto) 0.2, Neut # (Auto) 4.4, Lymph # (Auto) 0.7, [place] # (Auto) 0.3, Eos # (Auto) 0.0, Baso # (Auto) 0.0, Glucose 158 H, Calcium 8.8, Magnesium 2.3, Total Protein 7.0, Albumin 4.0, Globulin 3.0, Albumin/Globulin Ratio 1.3 10/17/23 11:28: POC Glucose 140 H 10/17/23 16:09: POC Glucose 153 H 10/17/23 20:35: POC Glucose 135 H 10/18/23 06:20: POC Glucose 119 H 10/18/23 06:49: WBC 5.5, RBC 4.40, Hgb 13.1, Hct 40.2, MCV 91.3, MCH 29.7, MCHC 32.5, RDW 15.7, Plt Count 355, MPV 8.0, Neut % (Auto) 70.6, Lymph % (Auto) 20.8, [place] % (Auto) 7.5, Eos % (Auto) 0.5, Baso % (Auto) 0.6, Neut # (Auto) 3.9, Lymph # (Auto) 1.1, [place] # (Auto) 0.4, Eos # (Auto) 0.0, Baso # (Auto) 0.0 I & O for Labs for Last 24 Hours: Intake & Output 10/15/23 10/16/23 10/17/23 10/18/23 23:59 23:59 23:59 23:59 Intake Total 890 / 890 Output Total 0 / 0 0 / 0 Balance 0 / 0 890 / 890 Weight 310 lb 5 oz 318 lb 4.8 oz 311 lb Constitutional: Present moderate distress Head: Present normocephalic and atraumatic ENT: Present normal exam, normal oropharynx and mucous membranes moist Neck: Present normal inspection and full ROM Respiratory: Present wheezes and able to speak in complete sentences; Absent respiratory distress, rhonchi or crackles Cardiac: Present S1/S2, Tachycardia and radial pulses present GI: Present soft and distention; Absent tenderness or guarding Rectal (female): Present deferred (female): Present deferred Skin: Present intact; Absent cyanosis or jaundice Neuro: Present alert, awake and oriented x 3 Extremities: Present normal inspection; Absent clubbing or cyanosis Psychiatric: Present normal affect and cooperative Assessment and Plan *Assessment and plan (1) Influenzal pneumonia: Status: Acute Category: Medical Code(s): J11.00 - Influenza due to unidentified influenza virus with unspecified type of pneumonia (2) Acute exacerbation of chronic obstructive pulmonary disease: Status: Acute Category: Medical Code(s): J44.1 - Chronic obstructive pulmonary disease with (acute) exacerbation (3) Acute hypoxic respiratory failure: Status: Acute Category: Medical Code(s): J96.01 - Acute respiratory failure with hypoxia Plan Ms. Mary is a 63-year-old female with a asthma COPD overlap syndrome allergic rhinitis and pulmonary nodule presented to ER from PCP office as patient noted to have worsening oxygen requirements along with subjective fevers. Afebrile on admission. No evidence of leukocytosis. Flu a negative on admission. COVID-19 negative. Increasing ox requirements, currently on 2 L nasal cannula oxygen supplementation. Chest x-ray upon admission no dense consolidation/airspace disease. Patient was initiated on Tamiflu along with ceftriaxone azithromycin and DuoNebs. She is also receiving diuretics. On examination significant wheezing on auscultation. Respiratory distress on my initial examination. Plan: Acute respiratory vents overnight. Continue to receive oseltamavir, ceftriaxone and azithromycin. Mild expiratory wheezing, significantly improved from yesterday On room air saturating 98%. Plan: Continue oseltamivir for influenza pneumonia x 5 days Continue ceftriaxone and azithromycin pending cultures. Antibiotics can be weaned to cefdinir to complete a total of 5-day course Add Advair 250 along with continuation of home Spiriva HandiHaler upon discharge. DuoNebs every 8 hours on as-needed basis upon discharge. # Thank you for involving pulmonary in this patient care. Will follow the patient in pulmonary clinic 4 to 6 weeks postdischarge. Please call pulmonary with any further questions or concerns.
[2023-10-18 07:31] LABS: Alanine Aminotransferase 29 U/L (12-78); Aspartate Amino Transferase 50 U/L (14-36); Blood Urea Nitrogen 18 mg/dl (7-17); Creatinine Clearance Estimated 46 mL/min (50-200); Estimated Glomerular Filt Rate 46 ml/min (>60); GFR (African American) 55 ML/MIN (>60)
[2023-10-18 07:32] LABS: Albumin Level 3.9 g/dl (3.5-5.0); Albumin/Globulin Ratio 1.2 (1.1-1.8); Alkaline Phosphatase 45 U/L (38-126); Anion Gap 11.6 mEq/L (5-15); Bilirubin,Total 0.4 mg/dl (0.2-1.3); Calcium 9.1 mg/dl (8.4-10.2); Carbon Dioxide 36 mmol/L (22.0-30.0); Globulin 3.2 g/dL (1.3-3.2); Glucose 124 mg/dl (74-100); Magnesium 2.2 mg/dl (1.6-2.3); Total Protein,Serum 7.1 g/dl (6.3-8.2)
[2023-10-18 07:51] VITALS: BP 136/65; PULSE 93; RESP 22; TEMP 36.7; O2SAT 90
--- NOTE | 2023-10-18 08:03 | PC.NURSE ---
82% on room air at rest
[2023-10-18] MEDS: FENOFIBRATE 134MG CAPSULE 134 MG PO (08:21)
[2023-10-18] MEDS: IRBESARTAN 150MG TAB 150 MG PO (08:21)
[2023-10-18] MEDS: PARoxetine 10MG TABLET 10 MG PO (08:21)
[2023-10-18] MEDS: hydroCHLOROthiazide 25MG TABLET 25 MG PO (08:21)
[2023-10-18] MEDS: OSELTAMIVIR PHOSPHATE 6MG/ML ORAL SUSP 60ML 30 MG PO (08:26)
[2023-10-18] MEDS: FLUTICASONE/SALMETEROL 250/50MCG DISKUS 1 PUFF IH (09:44)
[2023-10-18 09:45] VITALS: PULSE 82; PULSE 86; O2SAT 96
[2023-10-18] MEDS: clonazePAM 0.5MG TABLET 0.5 MG PO (09:59)
--- NOTE | 2023-10-18 11:40 | EXP.DC.SUM ---
General Admission date:: 10/16/23 Discharge date: 10/18/23 HPI HPI HPI: This is a 63-year-old morbidly obese female with a known history of COPD, current heavy smoker, Diabetes with CKD, HTN, HLD, hypothyroidism who has had 2 days of cough shortness of breath fever went to Dr. Sevilla's office where her oxygen saturations on room air were 80% and she was noted to have a fever and she was sent to the emergency department. Patient stated been in contact with influenza A sick close family members. She denies any significant chest pain associated with this denies any nausea vomiting diarrhea or any other symptoms. Admitted for treatment and management. Hospital Course Hospital Course Hospital Course: 63-year-old morbidly obese female with a known history of COPD, current heavy smoker, Diabetes with CKD, HTN, HLD, hypothyroidism who has had 2 days of cough shortness of breath fever went to Dr. Sevilla's office where her oxygen saturations on room air were 80% and she was noted to have a fever and she was sent to the emergency department. On arrival, patient presented with low O2 sat and tachycardic. Had a CXR, that does not showed a focal consolidation. was tested positive for influenza A. Patient continues to require supplemental oxygen but is overall doing better. Stable to discharge home to complete treatment for flu. Oxygen and nebulizer sent to [facility] for use at home. Problems addressed as follows: - Acute hypoxemia secondary to acute exacerbation of COPD, 2/2 acute influenza: Initiated on supplemental oxygen, able to wean to 1 to 2 L. Currently on 2 L. Room air saturation of 82%, will discharge home on oxygen. Initiated on Tamiflu and ceftriaxone and azithromycin on admission. Patient was positive for influenza. Will continue Tamiflu, renally dosed at discharge. Transition to cefdinir to complete 5-day course of antibiotics. Patient overall doing well. Pulmonology was consulted during admission, patient will follow-up with pulmonology in the coming weeks. Patient's Advair increased to 250/50. -Current smoker: Nicotine patch provided, discussed cessation treatment at discharge. Patient will be sent home with a nicotine patch. Recommended concurrent use with gum as she smokes 2 packs a day. Anxiety: Klonopin 0.5 mg p.o. twice daily as needed for anxiety; initiate Paxil 10 mg daily. Discharged home on Paxil with 3-day course of Klonopin. Encouraged to discuss her anxiety with her PCP for further management and adjustment of dosage -Other chronic conditions: Continue levothyroxine 175 mcg daily for hypothyroid Continue losartan and HCTZ for hypertension Spent 30 minutes in discharge counseling and direct care with patient. Exam Data for Last 24 hours Vital signs and Labs for Last 24 Hours: Temp Pulse Resp BP Pulse Ox O2 Del Method O2 Flow Rate 98.1 F 86 22 136/65 96 Nasal Cannula 2 10/18/23 07:51 10/18/23 09:45 10/18/23 07:51 10/18/23 07:51 10/18/23 09:45 10/18/23 09:45 10/18/23 09:45 Laboratory Results - last 24 hr 10/17/23 11:28: POC Glucose 140 H 10/17/23 16:09: POC Glucose 153 H 10/17/23 20:35: POC Glucose 135 H 10/18/23 06:20: POC Glucose 119 H 10/18/23 06:49: WBC 5.5, RBC 4.40, Hgb 13.1, Hct 40.2, MCV 91.3, MCH 29.7, MCHC 32.5, RDW 15.7, Plt Count 355, MPV 8.0, Neut % (Auto) 70.6, Lymph % (Auto) 20.8, [place] % (Auto) 7.5, Eos % (Auto) 0.5, Baso % (Auto) 0.6, Neut # (Auto) 3.9, Lymph # (Auto) 1.1, [place] # (Auto) 0.4, Eos # (Auto) 0.0, Baso # (Auto) 0.0, Sodium 139, Potassium 3.6, Chloride 95 L, Carbon Dioxide 36 H, Anion Gap 11.6, BUN 18 H D, Creatinine 1.20 H, Estimated Creat Clear 46, Estimated GFR 46 L, Est GFR ( Amer) 55 L, Glucose 124 H D, Calcium 9.1, Magnesium 2.2, Total Bilirubin 0.4, AST 50 H, ALT 29, Alkaline Phosphatase 45, Total Protein 7.1, Albumin 3.9, Globulin 3.2, Albumin/Globulin Ratio 1.2 I & O for Last 24 hours: Intake & Output 10/15/23 10/16/23 10/17/23 12/29/23 23:59 23:59 23:59 23:59 Intake Total 890 / 890 480 / 480 Output Total 0 / 0 0 / 0 Balance 0 / 0 890 / 890 480 / 480 Weight 140.755 kg 144.378 kg 141.067 kg Constitutional Constitutional: no acute distress, morbidly obese and chronically ill appearing *Routine HEENT Exam Head: Present normocephalic Eye: Present EOMI and PERRL ENT: Present mucous membranes moist *Routine Neck Exam Neck: Present supple; Absent lymphadenopathy *Routine Respiratory Exam Respiratory: Present prolonged expiratory phase, wheezes and diminished air movement; Absent rhonchi or crackles *Routine Cardiovascular Exam Cardiovascular: Present RRR *Routine Abdominal Exam Abdominal: Present soft and normoactive bowel sounds; Absent tenderness *Routine Extremities Exam Extremities: Absent cyanosis, clubbing or edema *Routine Skin Exam Skin: Present warm; Absent rash *Routine Neurological Exam Neurological: Present alert, oriented X3 and moving all extremities; Absent altered mental status Results Data Completed and Pending Labs on day of discharge: Labs from last 24 hours 10/18/23 10/18/23 10/17/23 06:49 06:20 20:35 WBC 5.5 RBC 4.40 Hgb 13.1 Hct 40.2 MCV 91.3 MCH 29.7 MCHC 32.5 RDW 15.7 Plt Count 355 MPV 8.0 Neut % (Auto) 70.6 Lymph % (Auto) 20.8 [place] % (Auto) 7.5 Eos % (Auto) 0.5 Baso % (Auto) 0.6 Neut # (Auto) 3.9 Lymph # (Auto) 1.1 [place] # (Auto) 0.4 Eos # (Auto) 0.0 Baso # (Auto) 0.0 Sodium 139 Potassium 3.6 Chloride 95 L Carbon Dioxide 36 H Anion Gap 11.6 BUN 18 H D Creatinine 1.20 H Estimated Creat Clear 46 Estimated GFR 46 L Est GFR ( Amer) 55 L Glucose 124 H D POC Glucose 119 H 135 H Calcium 9.1 Magnesium 2.2 Total Bilirubin 0.4 AST 50 H ALT 29 Alkaline Phosphatase 45 Total Protein 7.1 Albumin 3.9 Globulin 3.2 Albumin/Globulin Ratio 1.2 10/17/23 10/17/23 16:09 11:28 WBC RBC Hgb Hct MCV MCH MCHC RDW Plt Count MPV Neut % (Auto) Lymph % (Auto) [place] % (Auto) Eos % (Auto) Baso % (Auto) Neut # (Auto) Lymph # (Auto) [place] # (Auto) Eos # (Auto) Baso # (Auto) Sodium Potassium Chloride Carbon Dioxide Anion Gap BUN Creatinine Estimated Creat Clear Estimated GFR Est GFR ( Amer) Glucose POC Glucose 153 H 140 H Calcium Magnesium Total Bilirubin AST ALT Alkaline Phosphatase Total Protein Albumin Globulin Albumin/Globulin Ratio DS: Diagnosis Discharge Diagnosis (1) Influenzal pneumonia: Status: Acute Code(s): J11.00 - Influenza due to unidentified influenza virus with unspecified type of pneumonia (2) Acute exacerbation of chronic obstructive pulmonary disease: Status: Acute Code(s): J44.1 - Chronic obstructive pulmonary disease with (acute) exacerbation (3) Acute hypoxic respiratory failure: Status: Acute Code(s): J96.01 - Acute respiratory failure with hypoxia Meds Home Medications and Allergies Home Medications Medication Instructions Recorded Confirmed Type levothyroxine 175 mcg tablet 175 mcg PO DAILY Thyroid 11/27/17 10/16/23 History losartan 100 1 tab PO DAILY High Blood Pressure 11/27/17 10/17/23 History mg-hydrochlorothiazide 25 mg tablet cyanocobalamin (vitamin B-12) 1,000 mcg SQ MONTHLY Supplement 28 03/19/18 10/17/23 History 1,000 mcg/mL injection solution days ##4 albuterol 90 mcg/actuation aerosol 90 mcg inhalation Q4HP PRN 12/27/22 10/17/23 History inhaler Shortness Of Breath Or Wheezing cholecalciferol (vitamin D3) 125 125 mcg PO DAILY 12/27/22 10/16/23 History mcg (5,000 unit) capsule fenofibrate 160 mg tablet 145 mg PO DAILY 12/27/22 10/16/23 History ferrous sulfate 325 mg (65 mg 325 mg PO DAILY 12/27/22 10/17/23 History iron) tablet (FeroSul) icosapent ethyl 1 gram capsule 2 g PO BID 12/27/22 10/17/23 History (Vascepa) pioglitazone 45 mg tablet 45 mg PO DAILY 12/27/22 10/16/23 History fluticasone propionate 50 2 spray intranasal DAILY 10/17/23 10/17/23 History mcg/actuation nasal spray,suspension sitagliptin phosphate 100 mg 100 mg PO DAILY 10/17/23 10/17/23 History tablet (Januvia) cefdinir 300 mg capsule 300 mg PO BID 3 days #6 caps 10/18/23 Rx clonazepam 0.5 mg tablet 0.5 mg PO BIDP PRN Anxiety 3 days 10/18/23 Rx #6 tabs fluticasone 250 mcg-salmeterol 50 1 inh inhalation BID 30 days #60 ea 10/18/23 Rx mcg/dose blistr powdr for inhalation (Advair Diskus) ipratropium 0.5 mg-albuterol 3 mg 3 ml inhalation Q4-6H PRN Dyspnea 10/18/23 Rx (2.5 mg base)/3 mL nebulization 30 days #100 ea soln nicotine 21 mg/24 hr daily 21 mg transdermal DAILYP PRN 10/18/23 Rx transdermal patch Nicotine Cravings 28 days #28 ea oseltamivir 6 mg/mL oral 30 mg (5 mL) PO BID #60 mL 10/18/23 Rx suspension (Tamiflu) paroxetine HCl 10 mg tablet 10 mg PO DAILY 30 days #30 tabs 10/18/23 Rx New Prescriptions to Start Prescriptions: cefdinir [place],Tru clonazepam Tru Roger fluticasone propion-salmeterol [Advair Diskus] Tru Roger ipratropium-albuterol Tru Roger nicotine Tru Roger oseltamivir [Tamiflu] Tru Roger paroxetine HCl Tru Roger Allergies Allergy/AdvReac Type Severity Reaction Status Date / Time Penicillins [PENICILLINS] Allergy Unknown I-HIVES Verified 05/07/23 10:35 Discharge Plan Disposition Patient Disposition: Home, Self-Care Condition: Fair Discharge Order Discharge Orders: Discharge Order (Routine); Ordered 10/18/23 Ordered By: Tru Roger Follow up Plan Follow up with: Sánchez Sevilla MD [Primary Care Provider] - Enter time for follow up (please call for appointment) Carol Lopez MD [Physician] - 10/31/23 1:15 pm Prescriptions/Medication Reconciliation: New fluticasone propion-salmeterol [Advair Diskus] 250-50 mcg/dose Blister With Device 1 inh inhalation BID 30 Days Qty: 60 0RF clonazepam 0.5 mg Tablet 0.5 mg PO BIDP PRN (Reason: Anxiety) 3 Days Qty: 6 0RF ipratropium-albuterol 0.5 mg-3 mg(2.5 mg base)/3 mL Solution For Nebulization 3 ml inhalation Q4-6H PRN (Reason: Dyspnea) 30 Days Qty: 100 0RF nicotine 21 mg/24 hr Patch 24 Hour 21 mg transdermal DAILYP PRN (Reason: Nicotine Cravings) 28 Days Qty: 28 1RF paroxetine HCl 10 mg Tablet 10 mg PO DAILY 30 Days Qty: 30 0RF cefdinir 300 mg capsule 300 mg PO BID 3 Days Qty: 6 0RF oseltamivir [Tamiflu] 6 mg/mL Suspension For Reconstitution 30 mg PO BID Qty: 60 0RF Continued albuterol 90 mcg/actuation aerosol 90 mcg inhalation Q4HP PRN (Reason: Shortness Of Breath Or Wheezing) fenofibrate 160 mg tablet 145 mg PO DAILY pioglitazone 45 mg tablet 45 mg PO DAILY ferrous sulfate [FeroSul] 325 mg (65 mg iron) tablet 325 mg PO DAILY cholecalciferol (vitamin D3) 125 mcg (5,000 unit) capsule 125 mcg PO DAILY icosapent ethyl [Vascepa] 1 gram capsule 2 g PO BID losartan-hydrochlorothiazide 100-25 mg tablet 1 tab PO DAILY levothyroxine 175 mcg tablet 175 mcg PO DAILY cyanocobalamin (vitamin B-12) 1,000 mcg/mL solution 1,000 mcg SQ MONTHLY 28 Days Qty: 4 Januvia 100 mg tablet 100 mg PO DAILY fluticasone propionate 50 mcg/actuation spray,suspension 2 spray INTRANASAL DAILY Discontinued fluticasone propion-salmeterol [Wixela Inhub] 100-50 mcg/dose blister with device 1 inh inhalation BID 90 Days Qty: 180 3RF Other Ambulatory Orders: Home Medical Equipment (Routine) Location: None Selected Ordered By: Tru Roger Problem Reconciliation Problems Reviewed?: Yes Patient Discharge Instructions ACTIVITY: Continue current activity DIET: continue same diet Patient Instructions: Chronic Obstructive Pulmonary Disease (Alternative Therapy), DI for Chronic Obstructive Pulmonary Disease, DI for Sepsis -- Adult, Respiratory Failure Providers Primary Care Provider: Sánchez Sevilla Admit Provider: Tru Roger Attending Provider: Tru Roger
[2023-10-18 11:45] LABS: POC Glucose,Bedside 138 (70-110)
--- NOTE | 2023-10-22 14:37 | CARE MANAGER ---
Called and spoke with patient in regards to recent discharge. Patient states that she is doing better and has made all changes to medications that were prescribed at discharge. No concerns voiced at time of call.
--- NOTE | 2023-10-24 15:58 | PC.NURSE ---
BLOOD CULTURE RESULTS GIVEN TO DR KLEIN, NO ORDERS RECEIVED AT THIS TIME.
== END 2023-10-18 12:46 | disposition home or self-care (01) | DRG 193 ==
LOC: ER 16:16 → 2ND 18:42
PROVIDERS: Admitting Provider Internal Medicine Adolescent Medicine; Emergency Provider Student in an Organized Health Care Education/Training Program; PCP Internal Medicine; Visit Provider Internal Medicine Adolescent Medicine
DX: J10.00 Influenza due to other identified influenza virus with unspecified type of pneumonia (principal); J96.01 Acute respiratory failure with hypoxia; J44.1 Chronic obstructive pulmonary disease with (acute) exacerbation; Z68.43 Body mass index [BMI] 50.0-59.9, adult; F17.210 Nicotine dependence, cigarettes, uncomplicated; E03.9 Hypothyroidism, unspecified; E11.22 Type 2 diabetes mellitus with diabetic chronic kidney disease; N18.31 Chronic kidney disease, stage 3a; E66.01 Morbid (severe) obesity due to excess calories; I12.9 Hypertensive chronic kidney disease with stage 1 through stage 4 chronic kidney disease, or unspecified chronic kidney disease; F41.9 Anxiety disorder, unspecified
CPT/HCPCS: 36415; 71045; 80053; 82962; 83036; 83605; 83735; 83880; 84443; 84484; 85025; 87040; 87632; 87635; 93005; 94640; 94760; 94761; 99291; J0456; J0696; J3475

== ENCOUNTER 2023-11-11 12:32 | Outpatient (CLI) | payer MEDICARE, BC, SELFPAY ==
[2023-11-11 14:51] LABS: Basophils % 0.5 % (0.1-2.0); Eosinophils # 0.2 K/mm3 (0.0-0.4); Eosinophils % 2.3 % (0.1-12.0); Hematocrit 40.1 % (37.0-47.0); Lymphocytes # 1.3 K/mm3 (0.7-4.5); Lymphocytes % 19.2 % (10-50); Mean Corpuscular HGB Conc 32.3 g/dL (31.8-35.4); Mean Corpuscular Hemoglobin 30.2 pg (27.0-31.2); Mean Corpuscular Volume 93.4 fl (81-99); Monocytes # 0.3 K/mm3 (0.1-1.0); Neutrophils # 4.9 K/mm3 (1.8-7.8); Neutrophils % 74.1 % (37.0-80.0); Platelet Count 340 K/mm3 (142-424); Red Blood Count 4.29 M/mm3 (4.20-5.40); Red Cell Distribution Width 16.6 % (11.5-17.5); White Blood Count 6.6 K/mm3 (4.8-10.8)
[2023-11-11 15:56] LABS: Alanine Aminotransferase 16 U/L (12-78); Albumin/Globulin Ratio 1.4 (1.1-1.8); Alkaline Phosphatase 49 U/L (38-126); Anion Gap 12.1 mEq/L (5-15); Aspartate Amino Transferase 21 U/L (14-36); Bilirubin,Total 0.8 mg/dl (0.2-1.3); Blood Urea Nitrogen 24 mg/dl (7-17); Calcium 9.2 mg/dl (8.4-10.2); Carbon Dioxide 32 mmol/L (22.0-30.0); Chloride 100 mmol/L (98-107); Chol/HDL Ratio 6.1 (1-3.5); Cholesterol 221 mg/dl (140-200); Estimated Glomerular Filt Rate 33 ml/min (>60); GFR (African American) 40 ML/MIN (>60); Globulin 2.9 g/dL (1.3-3.2); Glucose 116 mg/dl (74-100); HDL Cholesterol 36 mg/dl (40-60); Potassium 5.1 mmoL/L (3.5-5.1); Sodium 139 mmol/L (136-145); Total Protein,Serum 6.9 g/dl (6.3-8.2); Triglycerides 157 mg/dl (30-150); VLDL Cholesterol 31 mg/dL (0-40)
[2023-11-11 16:16] LABS: Direct LDL Cholesterol 129.27 mg/dL (100-129)
[2023-11-11 22:06] LABS: Hemoglobin A1C 6.3 % (4.0-6.0)
== END 2023-11-11 23:59 ==
LOC: LAB.DROPOF 12:33
PROVIDERS: PCP Internal Medicine; Visit Provider Internal Medicine
DX: J44.1 Chronic obstructive pulmonary disease with (acute) exacerbation (principal); E11.9 Type 2 diabetes mellitus without complications; I10 Essential (primary) hypertension; E78.5 Hyperlipidemia, unspecified; E03.9 Hypothyroidism, unspecified; G56.22 Lesion of ulnar nerve, left upper limb; R60.9 Edema, unspecified; Z72.0 Tobacco use; Z79.84 Long term (current) use of oral hypoglycemic drugs
CPT/HCPCS: 80053; 80061; 83036; 85025

== ENCOUNTER 2024-02-04 15:12 | Outpatient (CLI) | payer MEDICARE, BC, SELFPAY ==
--- NOTE | 2024-02-04 15:13 | CT_ITS ---
FINAL REPORT TECHNIQUE: Axial CT images of the chest were obtained without contrast. Low-dose protocol was utilized. This study was performed with techniques to keep radiation doses as low as reasonably achievable (ALARA). Individualized dose reduction techniques using automated exposure control or adjustment of mA and/or kV according to the patient's size were employed. CLINICAL HISTORY: lung cancer screening. Former smoker- quit Sep 2023, 3 PPD for 40 yrs. COPD. Exposure to asbestos. Father had lung cancer. COMPARISON: None FINDINGS: CT CHEST WITHOUT, LOW DOSE SCREENING CT Di Vol: 2.90 mGy DLP: 115.42 mGy*cm There is no axillary, mediastinal, or hilar adenopathy. The heart size is normal. There are moderate vascular calcifications of the aortic arch. There is no pleural or pericardial effusion. The lung windows show a groundglass density in the periphery of the left upper lobe adjacent to the left major fissure measuring 8 mm in diameter and best seen on image 37 of series 4. There is scarring in the right mid lung and lingula. Limited images of the upper abdomen demonstrate no acute findings. IMPRESSION: LR Category 2: 12 month follow-up low-dose chest CT is recommended. Reviewed, Interpreted and Dictated by Henry Chan MD Transcribed by Daniela Arredondo Authenticated and [facility]
== END 2024-02-04 23:59 ==
LOC: RAD 15:13
PROVIDERS: PCP Internal Medicine; Visit Provider Internal Medicine Pulmonary Disease
DX: F17.210 Nicotine dependence, cigarettes, uncomplicated (principal); Z12.2 Encounter for screening for malignant neoplasm of respiratory organs
CPT/HCPCS: 71271

== ENCOUNTER 2024-02-27 11:51 | Outpatient (CLI) | payer MEDICARE, BC, SELFPAY ==
--- NOTE | 2024-02-27 11:59 | XR_ITS ---
FINAL REPORT CLINICAL HISTORY: Rt Knee Pain COMPARISON: None FINDINGS: Three views of the right knee reveal no evidence of fracture or dislocation. The bony alignment is normal. Mild degenerative changes present. There is no evidence of joint effusion. No localized soft tissue abnormality is identified. IMPRESSION: No acute abnormality identified. Mild degenerative change. Reviewed, Interpreted and Dictated by Jose Magaña III, MD Transcribed by Oumou Hoover Authenticated and [facility]
== END 2024-02-27 23:59 | disposition home or self-care (01) ==
LOC: RAD 11:53
PROVIDERS: PCP Internal Medicine; Visit Provider Physician Assistant Surgical
DX: M25.561 Pain in right knee (principal)
CPT/HCPCS: 73562

== ENCOUNTER 2024-05-13 09:55 | Outpatient (CLI) | payer MEDICARE, BC, SELFPAY ==
[2024-05-13 12:30] LABS: Hemoglobin A1C 5.8 % (4.0-6.0)
[2024-05-13 12:53] LABS: Alanine Aminotransferase 26 U/L (12-78); Albumin Level 4.1 g/dl (3.5-5.0); Albumin/Globulin Ratio 1.5 (1.1-1.8); Alkaline Phosphatase 48 U/L (38-126); Anion Gap 11.9 mEq/L (5-15); Aspartate Amino Transferase 33 U/L (14-36); Bilirubin,Total 0.7 mg/dl (0.2-1.3); Blood Urea Nitrogen 37 mg/dl (7-17); Calcium 10.2 mg/dl (8.4-10.2); Carbon Dioxide 33 mmol/L (22.0-30.0); Chloride 99 mmol/L (98-107); Chol/HDL Ratio 3.7 (1-3.5); Cholesterol 187 mg/dl (140-200); Estimated Glomerular Filt Rate 29 ml/min (>60); GFR (African American) 34 ML/MIN (>60); Globulin 2.8 g/dL (1.3-3.2); Glucose 104 mg/dl (74-100); HDL Cholesterol 51 mg/dl (40-60); Potassium 4.9 mmoL/L (3.5-5.1); Sodium 139 mmol/L (136-145); Total Protein,Serum 6.9 g/dl (6.3-8.2); Triglycerides 106 mg/dl (30-150); VLDL Cholesterol 21 mg/dL (0-40)
== END 2024-05-13 23:59 | disposition home or self-care (01) ==
LOC: LAB.DROPOF 05-15 09:55
PROVIDERS: PCP Internal Medicine; Visit Provider Internal Medicine
DX: E78.5 Hyperlipidemia, unspecified (principal); E11.42 Type 2 diabetes mellitus with diabetic polyneuropathy; I10 Essential (primary) hypertension
CPT/HCPCS: 80053; 80061; 83036

== ENCOUNTER 2024-05-18 07:44 | Outpatient (CLI) | payer MEDICARE, BC, SELFPAY ==
--- NOTE | 2024-05-18 07:44 | US_ITS ---
FINAL REPORT CLINICAL HISTORY: R79.89 - Other specified abnormal findings of blood chemi... COMPARISON: None FINDINGS: RENAL ULTRASOUND Ultrasound images of the kidneys were obtained. Limited images of the liver parenchyma demonstrates normal echogenicity. The right kidney measures 10.5 cm in length. There is no hydronephrosis, mass, or stenosis. The cortical thickness and echogenicity are normal. The left kidney measures 10.6 cm in length. There is no hydronephrosis. Mild left renal cortical thinning is noted. There is no mass. IMPRESSION: Normal morphology of the right kidney. Mild left renal cortical thinning. Reviewed, Interpreted and Dictated by Loreta Childs MD Transcribed by Daniela Arredondo Authenticated and [facility]
--- NOTE | 2024-05-18 07:44 | US_ITS ---
FINAL REPORT CLINICAL HISTORY: Abnormal kidney function tests COMPARISON: None FINDINGS: ULTRASOUND BLADDER Sonographic images of the urinary bladder were obtained. Initial imaging demonstrates incomplete distention. There are no filling defects seen. Postvoid exam was not performed. IMPRESSION: Limited exam but grossly unremarkable urinary bladder. Reviewed, Interpreted and Dictated by Loreta Childs MD Transcribed by Daniela Arredondo Authenticated and [facility]
== END 2024-05-18 23:59 | disposition home or self-care (01) ==
LOC: RAD 07:44
PROVIDERS: PCP Internal Medicine; Visit Provider Internal Medicine
DX: R79.89 Other specified abnormal findings of blood chemistry (principal); R94.4 Abnormal results of kidney function studies
CPT/HCPCS: 76770; 76857

== ENCOUNTER 2024-07-21 10:10 | Outpatient (CLI) | payer MEDICARE, BC, SELFPAY ==
[2024-07-21 10:21] LABS: Microscopic, Urine URINE MICROSCOPIC (MICROSCOPIC)
[2024-07-21 10:41] LABS: Appearance,Urine SL CLOUDY (Clear); Bilirubin,Urine Negative (Negative); Blood, Urine TRACE-I (Negative); Color,Urine YELLOW (Yellow); Glucose,Urine (UA) Negative (Negative); Ketones,Urine Negative (Negative); Leukocyte Esterase,Urine 1+ (Negative); Nitrate,Urine Negative (Negative); PH,Urine 7.5 (5.0-8.5); Protein,Urine Negative (Negative); Specific Gravity, Urine 1.015 (1.005-1.030); Urobilinogen,Urine 0.2 EU/dl (0.2)
[2024-07-21 10:48] LABS: Creatinine,Urine Random 59 mg/dL (Not Estab.)
[2024-07-21 10:51] LABS: Bacteria,Urine Trace /lpf; RBC,Urine Occasional #/hpf (0-3); Transitional Epi Cells,Urine OCC #/lpf (0-3)
[2024-07-21 10:56] LABS: Basophils # 0.1 K/mm3 (0-0.2); Basophils % 1.1 % (0.1-2.0); Eosinophils # 0.2 K/mm3 (0.0-0.4); Eosinophils % 3.7 % (0.1-12.0); Hemoglobin 12.3 g/dL (12.2-16.2); Lymphocytes # 1.2 K/mm3 (0.7-4.5); Mean Corpuscular HGB Conc 31.5 g/dL (31.8-35.4); Mean Corpuscular Hemoglobin 30.4 pg (27.0-31.2); Mean Corpuscular Volume 96.6 fl (81-99); Mean Platelet Volume 8.6 fl (7.4-10.4); Monocytes # 0.3 K/mm3 (0.1-1.0); Monocytes % 5.1 % (1.7-9.3); Neutrophils # 4.2 K/mm3 (1.8-7.8); Neutrophils % 70.1 % (37.0-80.0); Platelet Count 308 K/mm3 (142-424); Red Blood Count 4.04 M/mm3 (4.20-5.40); Red Cell Distribution Width 15.7 % (11.5-17.5)
[2024-07-21 11:53] LABS: Albumin Level 4.4 g/dl (3.5-5.0); Anion Gap 11.9 mEq/L (5-15); Blood Urea Nitrogen 46 mg/dl (7-17); Calcium 9.8 mg/dl (8.4-10.2); Carbon Dioxide 30 mmol/L (22.0-30.0); Chloride 99 mmol/L (98-107); Estimated Glomerular Filt Rate 28 ml/min (>60); GFR (African American) 34 ML/MIN (>60); Glucose 125 mg/dl (74-100); Phosphorous 3.4 mg/dl (2.5-4.5); Potassium 3.9 mmoL/L (3.5-5.1); Sodium 137 mmol/L (136-145)
== END 2024-07-21 23:59 | disposition home or self-care (01) ==
LOC: LAB 10:13
PROVIDERS: PCP Internal Medicine; Visit Provider Hospitalist
DX: N28.9 Disorder of kidney and ureter, unspecified (principal)
CPT/HCPCS: 36415; 80069; 81001; 82570; 84156; 85025; 87086; 87088; 87186

== ENCOUNTER 2024-11-12 10:45 | Outpatient (CLI) | payer MEDICARE, BC, SELFPAY ==
[2024-11-12 16:42] LABS: Basophils % 0.5 % (0.1-2.0); Eosinophils # 0.2 K/mm3 (0.0-0.4); Hematocrit 36.6 % (37.0-47.0); Hemoglobin 11.4 g/dL (12.2-16.2); Lymphocytes % 17.3 % (10-50); Mean Corpuscular HGB Conc 31.1 g/dL (31.8-35.4); Mean Corpuscular Hemoglobin 29.4 pg (27.0-31.2); Mean Corpuscular Volume 94.3 fl (81-99); Mean Platelet Volume 11.5 fl (7.4-10.4); Monocytes # 0.3 K/mm3 (0.1-1.0); Monocytes % 5.2 % (1.7-9.3); Neutrophils # 4.4 K/mm3 (1.8-7.8); Neutrophils % 73.8 % (37.0-80.0); Platelet Count 330 K/mm3 (142-424); Red Blood Count 3.88 M/mm3 (4.20-5.40); Red Cell Distribution Width 16.9 % (11.5-17.5); White Blood Count 5.9 K/mm3 (4.8-10.8)
[2024-11-12 17:29] LABS: Alanine Aminotransferase 18 U/L (12-78); Albumin Level 4.2 g/dl (3.5-5.0); Albumin/Globulin Ratio 1.7 (1.1-1.8); Alkaline Phosphatase 47 U/L (38-126); Anion Gap 12.3 mEq/L (5-15); Aspartate Amino Transferase 26 U/L (14-36); Bilirubin,Total 0.5 mg/dl (0.2-1.3); Blood Urea Nitrogen 32 mg/dl (7-17); Calcium 9.5 mg/dl (8.4-10.2); Carbon Dioxide 31 mmol/L (22.0-30.0); Chloride 101 mmol/L (98-107); Chol/HDL Ratio 4.6 (1-3.5); Cholesterol 187 mg/dl (140-200); Estimated Glomerular Filt Rate 38 ml/min (>60); GFR (African American) 46 ML/MIN (>60); Globulin 2.5 g/dL (1.3-3.2); Glucose 96 mg/dl (74-100); HDL Cholesterol 41 mg/dl (40-60); Potassium 5.3 mmoL/L (3.5-5.1); Sodium 139 mmol/L (136-145); Total Protein,Serum 6.7 g/dl (6.3-8.2); Triglycerides 104 mg/dl (30-150); VLDL Cholesterol 21 mg/dL (0-40)
[2024-11-12 17:58] LABS: Thyroid Stimulating Hormone 5.62 uIU/mL (0.465-4.68)
[2024-11-12 18:19] LABS: Microalbumin/Creatinine Ratio 11.5
[2024-11-12 18:35] LABS: Creatinine,Urine Random 58 mg/dL (Not Estab.)
== END 2024-11-12 23:59 | disposition home or self-care (01) ==
LOC: LAB.DROPOF 11-13 08:25
PROVIDERS: PCP Internal Medicine; Visit Provider Internal Medicine
DX: E11.22 Type 2 diabetes mellitus with diabetic chronic kidney disease (principal); N18.31 Chronic kidney disease, stage 3a; E11.42 Type 2 diabetes mellitus with diabetic polyneuropathy; E78.5 Hyperlipidemia, unspecified; E03.9 Hypothyroidism, unspecified; I10 Essential (primary) hypertension
CPT/HCPCS: 80053; 80061; 82043; 82570; 83036; 84443; 85025

== ENCOUNTER 2025-02-17 13:24 | Outpatient (CLI) | payer MEDICARE, BC, SELFPAY ==
--- NOTE | 2025-02-17 13:28 | XR_ITS ---
FINAL REPORT CLINICAL HISTORY: Left shoulder pain COMPARISON: None FINDINGS: LEFT SHOULDER 2 views of the left shoulder were obtained. There is no acute fracture or dislocation. Visualized joint spaces are normally aligned. Soft tissues are unremarkable. IMPRESSION: No acute bony abnormality. Reviewed, Interpreted and Dictated by Henry Chan MD Transcribed by Alexa Camarillo Authenticated and [facility]
== END 2025-02-17 23:59 | disposition home or self-care (01) ==
LOC: RAD 13:25
PROVIDERS: PCP Internal Medicine; Visit Provider Physician Assistant
DX: M75.52 Bursitis of left shoulder (principal)
CPT/HCPCS: 73030

== ENCOUNTER 2025-03-31 09:58 | Outpatient (CLI) | payer MEDICARE, BC, SELFPAY ==
[2025-03-31 10:07] LABS: Microscopic, Urine URINE MICROSCOPIC (MICROSCOPIC)
[2025-03-31 10:24] LABS: Basophils # 0.1 K/mm3 (0-0.2); Basophils % 0.7 % (0.1-2.0); Eosinophils # 0.3 Kmm3 (0.0-0.4); Eosinophils % 3.9 % (0.1-12.0); Hematocrit 38.1 % (37.0-47.0); Hemoglobin 12.1 g/dL (12.2-16.2); Immature Granulocytes # 0.04 10^3uL; Immature Granulocytes % 0.5 %; Lymphocytes # 1.2 K/mm3 (0.7-4.5); Lymphocytes % 16.2 % (10-50); Mean Corpuscular HGB Conc 31.8 g/dL (31.8-35.4); Mean Corpuscular Hemoglobin 29.3 pg (27.0-31.2); Mean Corpuscular Volume 92.3 fl (81-99); Mean Platelet Volume 10.3 fl (7.4-10.4); Monocytes # 0.4 K/mm3 (0.1-1.0); Monocytes % 4.7 % (1.7-9.3); Neutrophils # 5.7 K/mm3 (1.8-7.8); Nucleated Red Blood Cells # 0 10^3/uL; Nucleated Red Blood Cells % 0 %; Platelet Count 364 K/mm3 (142-424); Red Blood Count 4.13 M/mm3 (4.20-5.40); Red Cell Distribution Width 15.4 % (11.5-17.5); Red Cell Distribution Width-SD 52.7 fL; White Blood Count 7.7 K/mm3 (4.8-10.8)
[2025-03-31 10:30] LABS: Appearance,Urine CLEAR (Clear); Bilirubin,Urine Negative (Negative); Blood, Urine Negative (Negative); Color,Urine YELLOW (Yellow); Glucose,Urine (UA) Negative (Negative); Ketones,Urine Negative (Negative); Leukocyte Esterase,Urine 2+ (Negative); Nitrate,Urine Negative (Negative); PH,Urine 6.5 (5.0-8.5); Protein,Urine Negative (Negative); Urobilinogen,Urine 0.2 EU/dl (0.2)
[2025-03-31 10:41] LABS: Creatinine,Urine Random 103 mg/dL (Not Estab.)
[2025-03-31 10:46] LABS: Albumin Level 4.2 g/dl (3.5-5.0); Anion Gap 10.7 mEq/L (5-15); Blood Urea Nitrogen 30 mg/dl (7-17); Calcium 9.8 mg/dl (8.4-10.2); Carbon Dioxide 31 mmol/L (22.0-30.0); Chloride 100 mmol/L (98-107); Estimated Glomerular Filt Rate 41 ml/min (>60); GFR (African American) 50 ML/MIN (>60); Glucose 153 mg/dl (74-100); Phosphorous 2.9 mg/dl (2.5-4.5); Potassium 4.7 mmoL/L (3.5-5.1); Sodium 137 mmol/L (136-145)
[2025-03-31 10:54] LABS: Bacteria,Urine 3+ /lpf; WBC,Urine 20-50 #/hpf (0-3)
== END 2025-03-31 23:59 | disposition home or self-care (01) ==
LOC: LAB 09:59
PROVIDERS: PCP Internal Medicine; Visit Provider Student in an Organized Health Care Education/Training Program
DX: N28.9 Disorder of kidney and ureter, unspecified (principal)
CPT/HCPCS: 36415; 80069; 81001; 82043; 82570; 84156; 85025; 87086

== ENCOUNTER 2025-05-12 11:40 | Outpatient (CLI) | payer MEDICARE, BC, SELFPAY ==
[2025-05-12 15:02] LABS: Hematocrit 38.1 % (37.0-47.0); Hemoglobin 11.7 g/dL (12.2-16.2); Immature Granulocytes % 0.4 %; Mean Corpuscular HGB Conc 30.7 g/dL (31.8-35.4); Mean Corpuscular Hemoglobin 28.3 pg (27.0-31.2); Mean Corpuscular Volume 92.0 fl (81-99); Nucleated Red Blood Cells % 0 %; Platelet Count 385 K/mm3 (142-424); Red Blood Count 4.14 M/mm3 (4.20-5.40); Red Cell Distribution Width-SD 52.1 fL; White Blood Count 7.2 K/mm3 (4.8-10.8)
[2025-05-12 15:23] LABS: Albumin Level 4.3 g/dl (3.5-5.0); Chloride 97 mmol/L (98-107); Sodium 135 mmol/L (136-145)
[2025-05-12 15:24] LABS: Potassium 4.9 mmoL/L (3.5-5.1)
[2025-05-12 15:26] LABS: Alanine Aminotransferase 14 U/L (12-78); Albumin/Globulin Ratio 1.4 (1.1-1.8); Alkaline Phosphatase 63 U/L (38-126); Anion Gap 10.9 mEq/L (5-15); Aspartate Amino Transferase 23 U/L (14-36); Bilirubin,Total 1.1 mg/dl (0.2-1.3); Blood Urea Nitrogen 30 mg/dl (7-17); Carbon Dioxide 32 mmol/L (22.0-30.0); Cholesterol 194 mg/dl (140-200); Creatinine,Serum 1.20 mg/dl (0.52-1.04); Estimated Glomerular Filt Rate 45 ml/min (>60); GFR (African American) 55 ML/MIN (>60); Globulin 3.1 g/dL (1.3-3.2); Total Protein,Serum 7.4 g/dl (6.3-8.2); Triglycerides 156 mg/dl (30-150)
[2025-05-12 15:27] LABS: Calcium 10.1 mg/dl (8.4-10.2); Glucose 145 mg/dl (74-100); HDL Cholesterol 39 mg/dl (40-60)
[2025-05-12 18:37] LABS: Thyroid Stimulating Hormone 3.82 uIU/mL (0.465-4.68)
[2025-05-12 19:56] LABS: Hemoglobin A1C 7.4 % (4.0-6.0)
== END 2025-05-12 23:59 | disposition home or self-care (01) ==
LOC: LAB.DROPOF 05-13 15:17
PROVIDERS: PCP Internal Medicine; Visit Provider Internal Medicine
DX: E11.22 Type 2 diabetes mellitus with diabetic chronic kidney disease (principal); E78.5 Hyperlipidemia, unspecified; E03.9 Hypothyroidism, unspecified; N18.31 Chronic kidney disease, stage 3a; I12.9 Hypertensive chronic kidney disease with stage 1 through stage 4 chronic kidney disease, or unspecified chronic kidney disease
CPT/HCPCS: 80053; 80061; 82043; 82570; 83036; 84443; 85025